=== PATIENT | female | born 1935 | race Caucasian/White ===

== ENCOUNTER → 2019-02-07 08:59 | Outpatient (CLI) | payer MEDICARE, SELFPAY ==
--- NOTE | 2019-02-07 | DI.ECHO.S_ITS ---
[place] [facility]---------+ [facility] +---------+ : : [address] : [address] : : : : [id number] : : : : Phone: [phone]+ Echocardiogram Report + + :Name: REGINA BARRIOS Study Date: 02/07/2019 Height: 59 in : :[facility] Exam Location: IS Weight: 121 lb : : Gender: Female BSA: 1.5 m2 : :: 1935 Age: 83 yrs BP: 137/45 mmHg: :Reason For Study: HEART DISEASE : : Performed By: Maico Ventura : :Referring: NIYAH RODRIGUES : + + Interpretation Summary Left ventricular systolic function is normal without focal wall motion abnormalities with the ejection fraction visually estimated to be 60-65%. There is borderline concentric left ventricular hypertrophy that is unchanged compared to the previous study. There has been no significant change since the previous study. The right ventricle is normal size and systolic function is at the lower limits of normal but is unchanged compared to the previous study. The right ventricular systolic pressure is estimated to be at least 35 mmHg based on an estimated right atrial pressure of 3 mm Hg, and may be slightly higher compared to the previous study. The left atrium is moderately dilated and the right atrium is severely dilated but both atria have mildly decreased in size since the prior echo exam. There is moderate to severe mitral annular calcification but no significant mitral valve stenosis. There is moderate to severe tricuspid regurgitation that is unchanged compared to the previous study. 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 There is significant crowding of the LVOT but this is unchanged compared to the previous exam. The gradients through the prosthetic aortic valve are within the normal range for this type of valve but are slightly higher compared to the previous study. There is mild to moderate aortic regurgitation that is slightly more prominent compared to the previous study. Mild atherosclerotic plaque is noted in the descending aorta. Procedure: A two-dimensional transthoracic echocardiogram with color flow and Doppler was performed. The study quality was technically adequate. Comparison is made with the echocardiogram of 09/15/16. The patient was in normal sinus rhythm during the exam. Left Ventricle: The left ventricle is normal in size. There is borderline concentric left ventricular hypertrophy. Left ventricular systolic function is normal without focal wall motion abnormalities. The ejection fraction is estimated to be 60-65%. This is unchanged compared to the previous study. Diastolic function could not be accurately assessed due to confounding valvular disease. There has been no significant change since the previous study. Right Ventricle: The right ventricle is normal size. Right ventricular systolic function is at the lower limits of normal. This is unchanged compared to the previous study. Atria: The left atrium is moderately dilated. Both atria have mildly decreased in size since the prior echo exam. The right atrium is severely dilated. The interatrial septum is intact with no evidence for an atrial septal defect. Mitral Valve: There is moderate to severe mitral annular calcification. There is moderate calcification extending into the subvalvular apparatus. The mitral valve chordae are thickened and/or calcified. The mitral valve are by pressure half time is 2.7 cm2. No significant mitral valve stenosis. There is trace mitral regurgitation. This is unchanged compared to the previous study. 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 The prosthetic aortic valve is well-seated. There is significant crowding of the LVOT but this is unchanged compared to the previous exam. The gradients through the prosthetic aortic valve are within the normal range for this type of valve. There is probable normal prosthetic aortic valve function. This is slightly higher compared to the previous study. There is mild to moderate aortic regurgitation. This is slightly more prominent compared to the previous study. Tricuspid Valve: The tricuspid valve is normal in structure and function. There is moderate to severe tricuspid regurgitation. This is unchanged compared to the previous study. The right ventricular systolic pressure is estimated to be at least 35 mmHg based on an estimated right atrial pressure of 3 mm Hg. This is slightly higher compared to the previous study. Pulmonic Valve: The pulmonic valve is not well visualized. There is no pulmonic valvular regurgitation. Great Vessels: The aortic root is normal size. The dimensions of the ascending aorta are normal. Mild atherosclerotic plaque(s) in the descending aorta. The pulmonary artery is normal size. The IVC is of normal diameter and collapses greater than 50% with a sniff. This suggests a low right atrial pressure of 3 mm Hg. Pericardium/ Pleura There is no pericardial effusion. There is no pleural effusion. MMode/2D Measurements & Calculations LVIDd: 4.0 cm LVOT diam: 1.6 cm LVIDs: 2.2 cm Ao root diam: 2.8 cm FS: 44.8 % asc Aorta Diam: 2.4 cm EPSS: 1.3 cm IVSd: 0.87 cm LVPWd: 0.80 cm LV bui. diameter/BSA (cm/m^2): 2.7 LV sys. diameter/BSA (cm/m^2): 1.5 LA dimension: 3.0 cm RA long axis: 5.3 cm LA A2 area: 24.6 cm2 RA area: 21.3 cm2 LA A4 area: 15.9 cm2 RA vol: 72.4 ml LA length (vol): 5.2 cm RA : 48.6 ml/m2 LA vol: 63.6 ml IVC diam: 2.1 cm LA vol index: 42.7 ml/m2 Doppler Measurements & Calculations Ao V2 max: 203.2 cm/sec LVOT Max Jack: 105.3 cm/sec Ao V2 mean: 148.4 cm/sec LV V1 max P.4 mmHg Ao max P.5 mmHg LV V1 VTI: 27.1 cm Ao mean P.6 mmHg ELIAZAR(I,D): 1.1 cm2 Ao V2 VTI: 47.2 cm ELIAZAR(V,D): 0.98 cm2 sev ratio: 0.57 ELIAZAR indexed to BSA (cm^2/m^2): 0.73 AI P1/2t: 465.2 msec AI dec slope: 191.0 cm/sec2 MV E max jack: 124.3 cm/sec TR max jack: 282.6 cm/sec MV A max jack: 91.7 cm/sec TR max P.0 mmHg MV E/A: 1.4 PA V2 max: 70.8 cm/sec Med Peak E' Jack: 2.3 cm/sec PA V2 mean: 52.1 cm/sec E/E' med: 54.7 PA mean P.2 mmHg Lat Peak E' Jack: 7.4 cm/sec PA pr(Accel): 36.6 mmHg E/E' lat: 16.7 PA Accel Time: 0.11 sec E/e' average: 35.7 MV dec time: 0.28 sec MV P1/2t: 82.7 msec MVA(VTI): 1.4 cm2 MV V2 mean: 57.9 cm/sec MV P1/2t max jack: 125.0 cm/sec MV mean P.8 mmHg MVA(P1/2t): 2.7 cm2 MV V2 VTI: 36.9 cm SV(LVOT): 51.4 ml Reading Physician:JELANI
== END ==
PROVIDERS: Family Provider Internal Medicine; PCP Internal Medicine; Visit Provider Specialist
DX: I08.2 Rheumatic disorders of both aortic and tricuspid valves (principal); I70.0 Atherosclerosis of aorta; Z95.2 Presence of prosthetic heart valve
CPT/HCPCS: 93306

== ENCOUNTER → 2019-10-11 15:59 | Outpatient (CLI) | payer MEDICARE, SELFPAY ==
--- NOTE | 2019-10-11 | DI.ECHO.S_ITS ---
[place] +---------+ Hospital +---------+ : : [address] : [address] : : : : [id number] : : : : Phone: [phone]+ Echocardiogram Report + + :Name: REGINA BARRIOS Study Date: 10/11/2019 Height: 59 in : :[facility] Weight: 105 lb : : Gender: Female BSA: 1.4 m2 : :: 1935 Age: 83 yrs BP: 132/50 mmHg: :Reason For Study: Tricuspid Valve - Regurgitation : :Ordering Physician: Colton : :Tip Performed By: Mel Page : + + Interpretation Summary Left ventricular systolic function is normal with the ejection fraction visually estimated to be 60-65% with septal motion consistent with post- operative state but no other obvious focal wall motion abnormalities and appears unchanged compared to the previous study. The left ventricle is normal in size and wall thickness with an estimated left ventricular end diastolic volume of 61 ml. There has been no significant change since the previous study. The right ventricle is mild to moderately dilated and systolic function is mildly reduced and appears slightly larger and slightly less dynamic compared to the previous study. Pulmonary artery pressures cannot be estimated but the IVC suggests a CVP of around 15 mmHg, and is likely significantly higher compared to the previous study. Both atria are severely dilated and both atria have significantly increased in size since the prior echo exam. There is a mechanical aortic valve that appears to be well-seated with gradients that are within the normal range for this type of valve. There is mild to moderate aortic regurgitation that appears to be intravalvular and is unchanged from the previous study. The tricuspid valve leaflets appear to be mildly thickened and a dilated annulus preventing complete coaptation producing severe tricuspid regurgitation that is progressive compared to the previous study now with hepatic vein systolic flow reversal. Procedure: A two-dimensional transthoracic echocardiogram with color flow and Doppler was performed. The study quality was technically adequate. Comparison is made with the echocardiogram of 02/07/2019. The heart rate ranged between 56-63 bpm during the study. Left Ventricle: The left ventricle is normal in size and wall thickness. The estimated left ventricular end diastolic volume is 61 ml. Left ventricular systolic function is normal. The ejection fraction is estimated to be 60-65%. Septal motion is consistent with post-operative state. There are no other obvious focal wall motion abnormalities. This is unchanged compared to the previous study. Diastolic function could not be accurately assessed due to confounding valvular disease. There has been no significant change since the previous study. Right Ventricle: The right ventricle is mild to moderately dilated. Right ventricular systolic function is mildly reduced. This is slightly larger and slightly less dynamic compared to the previous study. Atria: Both atria are severely dilated. Both atria have significantly increased in size since the prior echo exam. There is no Doppler evidence for an interatrial shunt. Mitral Valve: There is severe mitral annular calcification. The mitral valve leaflets are mildly calcified. There is mild calcification extending into the subvalvular apparatus. The mitral valve mean gradient is 1.9 mmHg. There is trace mitral regurgitation. This is unchanged compared to the previous study. 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 The prosthetic aortic valve is well-seated. The gradients through the prosthetic aortic valve are within the normal range for this type of valve. There is mild to moderate aortic regurgitation. That appears to be intravalvular and is unchanged from the previous study. Tricuspid Valve: The tricuspid valve leaflets appear to be mildly thickened with mild coaptation and a dilated annulus preventing complete coaptation. There is severe tricuspid regurgitation. This is progressive with hepatic vein flow reversal compared to the previous study. Pulmonary artery pressures cannot be estimated because of the lack of a measurable TR jet velocity but the IVC suggests a CVP of around 15 mmHg. RVSP is underestimated do to the severity of TR. Pulmonic Valve: The pulmonic valve is not well seen, but is grossly normal. There is trace pulmonic regurgitation. Great Vessels: The aortic root is not well visualized but is probably normal size. The ascending aorta is normal in size. The pulmonary artery is not well visualized, but is probably normal size. The IVC is dilated (diameter is greater than 2.1 cm) and it collapses less than 50% with a sniff. This suggests a high right atrial pressure of 15 mm Hg. And is likely significantly higher compared to the previous study. Pericardium/ Pleura There is no pericardial effusion. There is no pleural effusion. MMode/2D Measurements & Calculations LVIDd: 3.7 cm LVOT diam: 1.6 cm LVIDs: 2.6 cm Ao root diam: 2.7 cm FS: 29.7 % asc Aorta Diam: 2.9 cm IVSd: 0.82 cm LVPWd: 0.81 cm LV bui. diameter/BSA (cm/m^2): 2.6 LV sys. diameter/BSA (cm/m^2): 1.8 LA A2 area: 27.6 cm2 RA long axis: 5.7 cm LA A4 area: 22.8 cm2 RA area: 28.1 cm2 LA length (vol): 6.2 cm RA vol: 117.7 ml LA vol: 85.7 ml RA : 83.9 ml/m2 LA vol index: 61.1 ml/m2 IVC diam: 2.6 cm RVD1 (basal): 5.0 cm RVD2 (mid): 4.0 cm Doppler Measurements & Calculations Ao V2 max: 191.1 cm/sec LVOT Max Jack: 84.5 cm/sec Ao V2 mean: 125.2 cm/sec LV V1 max P.9 mmHg Ao max P.6 mmHg LV V1 VTI: 18.9 cm Ao mean P.2 mmHg ELIAZAR(I,D): 1.1 cm2 Ao V2 VTI: 38.2 cm ELIAZAR(V,D): 0.94 cm2 sev ratio: 0.50 ELIAZAR indexed to BSA (cm^2/m^2): 0.75 AI P1/2t: 335.5 msec AI dec slope: 351.0 cm/sec2 MV E max jack: 129.0 cm/sec TR max jack: 214.2 cm/sec MV A max jack: 99.6 cm/sec TR max P.4 mmHg MV E/A: 1.3 PA V2 max: 71.6 cm/sec Med Peak E' Jack: 3.5 cm/sec PA V2 mean: 49.2 cm/sec E/E' med: 36.8 PA mean P.1 mmHg Lat Peak E' Jack: 8.3 cm/sec PA Accel Time: 0.11 sec E/E' lat: 15.6 E/e' average: 26.2 MV P1/2t: 65.0 msec MVA(VTI): 1.2 cm2 MV V2 mean: 56.9 cm/sec MV P1/2t max jack: 129.7 cm/sec MV mean P.9 mmHg MVA(P1/2t): 3.4 cm2 MV V2 VTI: 34.1 cm SV(LVOT): 40.2 ml Reading Physician:JELANI
== END ==
PROVIDERS: Family Provider Internal Medicine; PCP Internal Medicine; Visit Provider Specialist
DX: I08.2 Rheumatic disorders of both aortic and tricuspid valves (principal); Z95.2 Presence of prosthetic heart valve
CPT/HCPCS: 93306

== ENCOUNTER → 2021-02-16 14:45 | Outpatient (CLI) | payer MEDICARE, SELFPAY ==
--- NOTE | 2021-02-16 | DI.ECHO.S_ITS ---
[facility] +---------+ Hospital +---------+ : : [address] : [address] [place] : : : : [id number] : : : : Phone: [phone] +[phone]+ Echocardiogram Report + + :Name: REGINA BARRIOS Study Date: 02/16/2021 Height: 58 in : :[facility] ReadingLocation: Weight: 92 lb : : Gender: Female BSA: 1.3 m2 : :: 1935 Age: 85 yrs BP: 134/72 mmHg: :Reason For Study: HEART DISEASE : :Ordering Physician: LILIA, : :NIYAH Performed By: Sarahy Emanuel : :Referring: NIYAH RODRIGUES : + + Interpretation Summary Left ventricular systolic function remains normal with an estimated ejection fraction of 65 to 70% without any obvious focal wall motion abnormality although a significant dyssynchronous contraction pattern likely due to previous surgery and a paced rhythm but grossly appears unchanged from the previous exam. Diastolic function cannot be accurately assessed. The right ventricle is mildly enlarged with moderately reduced systolic function and appears slightly smaller and slightly less dynamic compared to the previous study. Pacemaker leads are now seen which are new compared to the previous exam. Right ventricular systolic pressure is estimated at 40 mmHg with a CVP of 15 mmHg based on a dilated IVC although measuring smaller compared to the previous exam. There is probable significant biatrial enlargement although right atrial size has significantly decreased since the previous exam. There continues to be significant mitral valve calcification but without significant mitral stenosis or regurgitation and appears unchanged compared to the previous study. The is a normally functioning mechanical prosthetic aortic valve with trivial aortic regurgitation that is less prominent compared to the previous study. There is now a probable tricuspid valve clip with moderate tricuspid regurgitation that appears significantly less prominent compared to the previous exam. A small left pleural effusion is noted which was not identified on the previous study. Procedure: A two-dimensional transthoracic echocardiogram with color flow and Doppler was performed. Comparison is made with the echocardiogram of 10/11/2019. Left Ventricle: The left ventricle is normal in size and wall thickness. The estimated left ventricular end diastolic volume is 33 ml. Left ventricular systolic function appears normal without focal wall motion abnormalities. The ejection fraction is estimated to be 65-70%. There is a mild dyssynchronous contraction pattern due to the paced rhythm. There are no focal wall motion abnormalities. Diastolic function could not be accurately assessed due to paced rhythm. There has been no significant change since the previous study. Right Ventricle: The right ventricle is mildly dilated. There is a pacemaker lead in the right ventricle. Right ventricular systolic function is moderately reduced. This is slightly smaller and slightly less dynamic compared to the previous study. Atria: The left atrium is not well visualized. The left atrium visually appears severly enlarged, possibly slightly smaller compared to the previous study. The right atrium is severely dilated. The right atrium has significantly decreased in size since the prior echo exam. There is a catheter/pacemaker lead seen in the right atrium. The interatrial septum is not well visualized. Mitral Valve: There is severe mitral annular calcification. The mitral valve leaflets are mildly calcified. There is mild calcification extending into the subvalvular apparatus. No significant mitral valve stenosis. The mitral valve mean gradient is 1.65 mmHg. There is trace mitral regurgitation. This is unchanged compared to the previous study. 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 The prosthetic aortic valve is well-seated. The gradients through the prosthetic aortic valve are within the normal range for this type of valve. There is trace aortic regurgitation. This is less prominent compared to the previous study. Tricuspid Valve: Tricuspid leaflets are thickened. There is a probable tricuspid valve clip which is new from the previous study. There is moderate tricuspid regurgitation. This is less prominent compared to the previous study. The right ventricular systolic pressure is estimated to be at least 40 mmHg based on an estimated right atrial pressure of 15 mm Hg. Comparison with the previous study is not possible because this was unable to be assessed on the previous study. Pulmonic Valve: The pulmonic valve is not well visualized. There is trace pulmonic regurgitation. Great Vessels: The aortic root is not well visualized. The dimensions of the ascending aorta are normal. The IVC is dilated (diameter is greater than 2.1 cm) and it collapses less than 50% with a sniff. This suggests a high right atrial pressure of 15 mm Hg. Pericardium/ Pleura There is no pericardial effusion. There is a small left- sided pleural effusion. This is more prominent compared to the previous study. MMode/2D Measurements & Calculations LVIDd: 3.8 cm LVOT diam: 1.9 cm LVIDs: 2.4 cm asc Aorta Diam: 2.8 cm FS: 35.3 % IVSd: 0.81 cm LVPWd: 0.83 cm LV bui. diameter/BSA (cm/m^2): 2.9 LV sys. diameter/BSA (cm/m^2): 1.9 LA A4 area: 20.7 cm2 RA long axis: 5.5 cm LA length (vol): 5.7 cm RA area: 20.7 cm2 RA vol: 66.8 ml RA : 51.0 ml/m2 IVC diam: 2.2 cm RVD1 (basal): 4.1 cm TAPSE: 0.91 cm Doppler Measurements & Calculations Ao V2 max: 149.7 cm/sec LVOT Max Jack: 51.4 cm/sec Ao V2 mean: 105.0 cm/sec LV V1 max P.1 mmHg Ao max P.0 mmHg LV V1 VTI: 11.7 cm Ao mean P.2 mmHg ELIAZAR(I,D): 0.94 cm2 Ao V2 VTI: 34.4 cm ELIAZAR(V,D): 0.95 cm2 sev ratio: 0.34 ELIAZAR indexed to BSA (cm^2/m^2): 0.72 MV E max jack: 110.8 cm/sec TR max jack: 249.0 cm/sec MV A max jack: 76.8 cm/sec TR max P.8 mmHg MV E/A: 1.4 PA pr(Accel): 34.5 mmHg Med Peak E' Jack: 3.6 cm/sec E/E' med: 31.1 Lat Peak E' Jack: 6.1 cm/sec E/E' lat: 18.3 E/e' average: 24.7 MV dec time: 0.24 sec MVA(VTI): 1.0 cm2 MV V2 mean: 56.7 cm/sec SV(LVOT): 32.3 ml MV mean P.6 mmHg MV V2 VTI: 31.1 cm TV mean P.4 mmHg Reading Physician:11:57 AM
== END ==
PROVIDERS: Family Provider Internal Medicine; PCP Internal Medicine; Referring Provider Specialist; Visit Provider Specialist
DX: I07.1 Rheumatic tricuspid insufficiency (principal); J90 Pleural effusion, not elsewhere classified; Z95.2 Presence of prosthetic heart valve; Z95.0 Presence of cardiac pacemaker
CPT/HCPCS: 93306

== ENCOUNTER 2021-04-01 15:14 | Emergency (ER) | payer MEDICARE, SELFPAY ==
[2021-04-01 15:23] VITALS: BP 128/67; PULSE 70; RESP 18; TEMP 36.4; O2SAT 99
--- NOTE | 2021-04-01 19:54 | CM.SWNOTE ---
WAGON WINDER Note WAGON WINDER receives consult and meets with patient and patient's son in law in waiting area. Patient is 85 y/o female presents to this ED with concerns for pneumonia and SOB. [place] [facility] until a few hours prior to visiting this ED. With patient's consent, WAGON WINDER meets with patient and patient's son in law. Patient is A/Ox4 and presents as concerned that she is in her nightgown, patient states that son in law is concerned about patient's health and that is why she is at this ED. It is reported by patient and FLETCHER that patient has been to 5 hospitals since October 2020 due to pain, broken vertebra, broke ribs and lump in back. Patient endorses going to [facility], [facility] multiple times and [facility]. Patient's son in law reports concern that patient has lost 30 lbs in a short amount of time and presents as upset that [facility] d/c'd patient and concerns that patient needs to be in hospital and receive medical attention. WAGON WINDER discusses caregivers, NURSING HOME and SNF and HH. Son in law reports he is burned out of being a caregiver and drives patient and cooks and cleans and prepares meals. Patient endorses she is independent with ADLs at home and uses a walker. Patient states she stayed at [facility] for a few weeks and received HH services before. Patient's son in law endorses that he just hired a caregiver and she will start serving patient soon as frequently as she can. Patient endorses that she does not want to live in [place] or SNF at this time. WAGON WINDER encourages patient to utilize caregiver and see how it works out for family as it is something that they have not yet tried. WAGON WINDER provides patient with senior resource guide. In private WAGON WINDER asks patient if she feels safe at home and she responds Yes, he just has a big mouth. Plan: Patient to d/c when medically clear to home with caregiver and family support in home. Per ED tracker patient LWOBS. STEFF Verma
== END 2021-04-01 19:00 | disposition left against medical advice (07) ==
PROVIDERS: Emergency Provider Emergency Medicine; Family Provider Internal Medicine; PCP Internal Medicine
CPT/HCPCS: 99281

== ENCOUNTER → 2022-04-01 13:08 | Outpatient (CLI) | payer MEDICARE, SELFPAY ==
--- NOTE | 2022-04-01 | DI.RAD.S_ITS ---
PROCEDURE: FL BARIUM SWALLOW W SPEECH INDICATIONS: DYSPHAGIA COMPARISON: TECHNIQUE: Examination was conducted in conjunction with speech pathology per standard protocol. In the lateral projection, filming was performed of the patient swallowing. AP projection filming may also be performed with patient swallowing. COMPARISON: Outside Film, CT, CT LUMBAR SPINE WITHOUT CONTRAST, 02/24/2022, 13:31. FINDINGS: Function: There is laryngotracheal aspiration with thin barium consistency. There is vallecular pooling with ever consistency. Morphology: No cricopharyngeal bar is identified. No cervical esophageal webs. No Zenker's diverticulum. No strictures. AP view of chest demonstrates the esophagus is distended. There is narrowing at the GE junction. Heart size is moderately enlarged. Sternotomy and a cardiac valve prosthesis. IMPRESSION: 1. There is laryngeal aspiration with thin barium consistency. Please see speech pathologist's report for detail. 2. Follicular falling. 3. 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 Recommend EGD for follow-up evaluation. Dictated by: Nelida Allen M.D. on 04/01/2022 at 16:02 Approved by: Nelida Allen M.D. on 04/01/2022 at 16:05
--- NOTE | 2022-04-01 15:21 | ST.SWALLOW ---
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 She stated she is unable to eat solids and experiences high volumes of phlegm that she is constantly spitting up when she drinks liquid. She is currently on a liquid diet to meet her nutrition and hydration needs. Subjective Observations Rena arrived carrying an emesis bag and several tissues as she has been experiencing higher volumes of phlegm today and was concerned about vomiting. Procedure and process explained and Rena expressed understanding and agreed to participate. Patient Positioning Position View Lat-A/P Imaging Lateral View Textures Administered Trials Presented Thin Liquid via Cup,Furley Liquid via Cup,Honey Liquid via Spoon,Regular Textures Oral Phase Source: MBSIMP (TM) (C) Bolus Specific Scoring Grid Lip Closure Severe Impairment Tongue Control During Bolus Hold No Impairment (WNL) Bolus Prep/Mastication No Impairment (WNL) Bolus Transport/Lingual Motion Severe Impairment A/P Lingual Propulsion Delay Yes Oral Residue Mild Impairment Residue Clearing Mild Impairment Nasal Regurgitation No Additional Oral Phase Observations Anterior loss of bolus present on initial swallow, with no anterior loss on successive swallows. Pt exhibited significant effort when attempting a/p propulsion of bolus, with disorganized and repetitive tongue movements and a delay in swallowing following verbal prompt. Mild oral residue present following all swallows, which pt had difficulty clearing due to difficulty with a/p propulsion and initiating swallows. Pharyngeal Phase Source: MBSIMP (TM) (C) Bolus Specific Scoring Grid Delayed Initiation of Pharyngeal Swallow Yes: head of bolus at posterior surface of epiglottis Soft Palate Elevation No Impairment (WNL) Tongue Base Strength/Range of Motion No Impairment (WNL) Residue Along the Tongue Base Yes Clearance of Residue Along Tongue Base Moderate Impairment Laryngeal Elevation No Impairment (WNL) Anterior Hyoid Movement Mild Impairment Epiglottic Range of Motion No Impairment (WNL) Vallecular Residue Yes Clearance of Vallecular Residue Moderate Impairment Laryngeal Vestibular Closure No Impairment (WNL) Pharyngeal Stripping Wave No Impairment (WNL) Posterior Pharyngeal Wall Residue Yes Clearance of Posterior Pharyngeal Wall Moderate Impairment Residue Upper Esophageal Sphincter Opening Mild Impairment Residue in the Pyriform Sinuses Yes Clearance of Residue in the Pyriform Moderate Impairment Sinuses Pharyngoesophageal Backflow Observed No Additional Pharyngeal Phase Observations Delayed initiation of pharyngeal swallow, with head of the bolus at the posterior surface of the epiglottis. Once swallow was initiated, structures moved efficiently and WNL. Mildly impaired hyolaryngeal elevation and excursion, but laryngeal vestibular closure and epiglottic movement were WNL. Mild-moderate residue present following swallow, which pt had moderate difficulty clearing due to challenges with initiating swallow. Pt was able to clear some residue with sequential swallows, however, aspiration and penetration occurred with residue from thin liquid trials. 1 instance of aspiration (PAS 7) and 1 instance of penetration (PAS 5 ) noted with residue from thin liquid. No instances of aspiration or penetration with thicker liquids or solid. Thicker liquids and solid moved significantly slower and appeared to increase effort required to initiate swallow and clear residue. Assessment was paused x3 to allow pt time to clear phlegm from her mouth. A/P View A/P View Observations Esophageal Clearance Upright Position Severe Impairment Additional Observations No trials completed in A/P view as imaging indicated severe esophageal retention. No retrograde flow observed, however, retrograde flow may be present if additional trials were completed or if pt was actively drinking. Possible stricture or narrowing of esophagus. Recommend GI referral and discussed remaining upright for an hour or more following assessment to help bolus pass through esophagus to stomach. Pt expressed understanding and agreement. Clinical Impressions Dysphagia Type oropharyngeal dysphagia Findings The pt presents with moderately-severe oropharyngeal dysphagia characterized by disorganized and repetitive tongue movement during a/p propulsion of bolus, difficulty initiating swallow to clear residue, and pharyngeal residue that increase pt risk for aspiration. Pt exhibited 1 instance of aspiration (PAS 7) and 1 instance of penetration (PAS 5) on thin liquids and presented with a weak cough to clear. No penetration or aspiration observed with thickened liquids. Additionally, pt presents with severely impaired esophageal clearance and would benefit from a referral to GI. Recommend nectar thick liquids to reduce risk of aspiration, referral for outpatient speech therapy targeting safe swallow strategies and oral motor exercises, and referral for GI due to severely impaired esophageal clearance. Rehabilitation Potential Fair Patient Appropriate for Therapy Yes Recommendations Diet Liquids Order Furley Diet Order Regular Medication Recommendation As Tolerated Aspiration Precautions Recommended Precautions Upright at 90 Degrees,Frequent Rest Periods,Small Bites/Sips Treatment Plan Therapy Recommendations Outpatient Speech Therapy Recommended Referrals GI Consult Compensatory Strategies Recommendations Sitting Upright (90 deg),Small Bites and Sips Short Term Goals 1. The pt will perform safe swallow strategies with oral intake independently to reduce risk of aspiration. 2. The pt will perform exercises to increase strength , coordination, and ROM of swallow musculature to reduce risk of aspiration and increase comfort with oral intake. Fagot Heater Helper Goals The pt will safely tolerate least restrictive diet to meet her nutrition and hydration needs. Additional Recommendations/Comments Furley thick liquids are recommended to reduce risk of aspiration. Examples of thickeners include Thick-It and Simply Thick. There are also several kitchen vivian that can be used to thicken liquids.
== END ==
PROVIDERS: Family Provider Internal Medicine; PCP Internal Medicine; Referring Provider Otolaryngology; Visit Provider Otolaryngology
DX: K22.2 Esophageal obstruction (principal); R13.19 Other dysphagia
CPT/HCPCS: 74230; 92611

== ENCOUNTER 2022-05-20 21:32 | Inpatient (IN) | payer MEDICARE, SELFPAY ==
[2022-05-20 21:37] VITALS: BP 160/72; PULSE 69; RESP 18; TEMP 36.6; O2SAT 98; BMI 17.7
--- NOTE | 2022-05-20 21:37 | DI.RAD.S_ITS ---
PROCEDURE: XR HIP W PEL IF DONE RT 2V INDICATIONS: fall with R hip injury TECHNIQUE: AP pelvis with lateral view(s) of the right hip(s). COMPARISON: None. FINDINGS: Bones: Decreased mineralization. There is an intertrochanteric right hip fracture resulting in varus deformity of the right hip. There is no visible dislocation. No significant anterior posterior displacement. The left hip is intact. Pelvic ring appears intact. No suspicious bony lesions. Soft tissues: The visualized bowel gas pattern is normal. No suspicious soft tissue calcifications. IMPRESSION: 1. Intertrochanteric right hip fracture without dislocation. Dictated by: Sharron Martinez M.D. on 05/20/2022 at 22:51 Approved by: Sharron Martinez M.D. on 05/20/2022 at 22:52
--- NOTE | 2022-05-20 21:38 | DI.CT.S_ITS ---
PROCEDURE: CT HEAD/BRAIN WO CON INDICATIONS: fall with head injury on thinners TECHNIQUE: Noncontrast 4.5 mm thick angled axial sections acquired from the foramen magnum to the vertex, with coronal and sagittal reformats. For radiation dose reduction, the following was used: automated exposure control, adjustment of mA and/or kV according to patient size. COMPARISON: None. FINDINGS: Image quality: Excellent. CSF spaces: Basal cisterns are patent. No extra-axial fluid collections. The ventricles are symmetric in size and shape. Brain: No intracranial bleeds or masses. There is cerebral volume loss for age, with resultant ventricular and sulcal prominence. Benign basal ganglia calcifications present. Focal right basal ganglia lacunar infarct. There are periventricular and deep white matter chronic small vessel ischemic changes. There is heavy intracranial internal carotid artery atherosclerosis. Skull and face: Calvarium and visualized facial bones appear intact, without suspicious lesions. Sinuses: Visualized sinuses and mastoids are clear. IMPRESSION: 1. No CT evidence of acute intracranial process. 2. Age-appropriate cerebral cortical volume loss and chronic microvascular ischemic changes. 3. Remote right basal ganglia infarct. 4. No visible subcutaneous hematoma or underlying fracture. Dictated by: Sharron Martinez M.D. on 05/20/2022 at 22:53 Approved by: Sharron Martinez M.D. on 05/20/2022 at 22:55
[2022-05-20 21:40] VITALS: PULSE 66; O2SAT 98
[2022-05-20 21:46] VITALS: BP 149/65; PULSE 64; O2SAT 97
[2022-05-20 22:00] VITALS: PULSE 61; O2SAT 94
[2022-05-20 22:04] LABS: Add Manual Diff / Slide Review NO; Basophils Absolute Auto 0 /uL (0-100); Basophils Percent Auto 0.3 % (0-2); Eosinophils Absolute Auto 100 /uL (0-450); Eosinophils Percent Auto 1.6 % (2-4); Hematocrit 35.3 % (36-46); Hemoglobin 11.9 g/dL (12.0-16.0); Lymphocytes Absolute Auto 1300 /uL (1100-4500); Lymphocytes Percent Auto 33.5 % (25-40); Mean Corpuscular HGB Conc 33.5 % (30-36); Mean Corpuscular Hemoglobin 32.2 PG (26-34); Mean Corpuscular Volume 95.9 fL (80-100); Monocytes Absolute Auto 300 /uL (0-900); Monocytes Percent Auto 8.2 % (3-14); Neutrophils Absolute Auto 2100 /uL (1500-7000); Neutrophils Percent Auto 56.4 % (50-75); Platelet Count 108 X10^3/uL (150-400); Red Blood Cell Count 3.69 X10^6/uL (4.0-5.2); Red Cell Distribution Width 13.6 % (11.6-14.8); White Blood Cell Count 3.7 X10^3/uL (4.5-11.0)
[2022-05-20 22:08] LABS: Alanine Aminotransferase 33 IU/L (<35); Albumin 3.5 g/dL (3.5-5.0); Alkaline Phosphatase 220 U/L (38-126); Aspartate Aminotransferase 57 IU/L (14-36); BUN Creatinine Ratio 51.5 (6-22); Bilirubin Total 0.7 mg/dL (0.2-1.3); Blood Urea Nitrogen 52 mg/dL (7-17); Calcium 8.7 mg/dL (8.4-10.2); Carbon Dioxide 32 mmol/L (22-32); Chloride 107 mmol/L (98-107); Estimated Glomerular Filt Rate 55 mL/min (>60); Globulin 3.6 g/dL (1.7-4.1); Glucose 136 mg/dL (80-110); HEMOLYSIS < 15 (0-50); Potassium 3.6 mmol/L (3.4-5.1); Sodium 143 mmol/L (137-145); Total Protein 7.1 g/dL (6.3-8.2)
[2022-05-20 22:16] LABS: COVID19 -Nasal RAPID POSITIVE (Negative)
[2022-05-20 22:19] VITALS: BP 161/72; PULSE 66; RESP 23; O2SAT 97
--- NOTE | 2022-05-20 22:21 | ED.LOWEXIN ---
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 She had been standing at her home when a family member was attempting to place a pain patch on her back when she lost her balance and fell onto her right side injuring her right hip and also hitting her head. She denies any loss of consciousness, nausea or vomiting and has full recall of the event. She denies any neck or back pain. She has significant pain in her right hip which is worse with palpation and attempts at ambulation. She denies any numbness, tingling or weakness. She denies runny nose, sore throat or cough. She is had no chest pain or shortness of breath. She is activated as a modified trauma given fall with head injury while on anticoagulants Related Data Allergies Allergy/AdvReac Type Severity Reaction Status Date / Time codeine Allergy Intermediate Vomiting Verified 04/01/21 15:27 Review of Systems Review of Systems Narrative: GENERAL: Denies chills, fatigue, malaise, fever, sweats. HEENT: Denies sinus pain, ear pain, sore throat, difficulty swallowing, dizziness. RESPIRATORY: Denies dyspnea, cough, wheezing, hemoptysis, sputum. CARDIOVASCULAR: Denies chest pain, palpitations, orthopnea, edema, GASTROINTESTINAL: Denies nausea, vomiting, abdominal pain, diarrhea, constipation, melena. : Denies dysuria, frequency, incontinence, hematuria, urinary retention. MUSCULOSKELETAL: See HPI SKIN: Denies rash, skin lesions, or other NEUROLOGIC: Denies weakness, headache, numbness, change in speech, confusion, seizures, incoordination. PSYCHIATRIC: No concerning psychosocial issues. 12 point review of systems is negative except for those stated above Patient History Social History household members: other Smoking Status: Never smoker alcohol intake: current Smoking Status: Never smoker alcohol intake frequency: 0-2 drinks per day Substance Use Type: does not use Exam Narrative Exam Narrative: GENERAL: [86] year old patient appears stated age. Well-developed patient, in mild distress. GCS 15 HEAD: Atraumatic. Normocephalic. EYES: Pupils equal round and reactive. Extraocular motions intact. No scleral icterus. No injection or drainage. ENT: Nose without bleeding, purulent drainage. Throat without erythema, tonsillar hypertrophy or exudate. Airway patent. NECK: Trachea midline. Non tender CARDIOVASCULAR: Regular rate and rhythm without murmurs, gallops, or rubs. RESPIRATORY: Clear to auscultation. Breath sounds equal bilaterally. No wheezes, rales, or rhonchi. GASTROINTESTINAL: Abdomen soft, non-tender, nondistended. EXTREMITIES: Pain on palpation of right hip, shortening and external rotation noted, this is closed, isolated and neurovascularly intact BACK: Nontender without deformity or crepitance. No flank tenderness. NEURO: AOx3. SKIN: No rash or erythema of visible areas Initial Vital Signs Initial Vital Signs: Vital Signs Temperature 98 F 05/20/22 21:37 Pulse Rate 69 05/20/22 21:37 Respiratory Rate 18 05/20/22 21:37 Blood Pressure 160/72 H 05/20/22 21:37 Pulse Oximetry 98 05/20/22 21:37 Oxygen Delivery Method 05/20/22 21:37 Course Orders Ordered: ED Orders 05/20/22 21:37 XR hip w pel if done RT 2V Stat 05/20/22 21:38 CT head/brain wo con Stat 05/20/22 21:47 COVID19 -Nasal RAPID/Pre-Proc Stat Complete Blood Count AUTO DIFF Stat Comprehensive Metabolic Panel Stat Prothrombin Time INR Stat 05/20/22 22:39 Consult to Orthopedic Surgery Stat 05/21/22 05:00 Basic Metabolic Panel Routine Complete Blood Count AUTO DIFF Routine Prothrombin Time INR Routine Acetaminophen (Acetaminophen 325 Mg Tablet) 650 mg PO Q6HR PRN PRN Reason: Fever/Mild Pain (1-3) Morphine Sulfate (Morphine 2 Mg/Ml Inj) 2 mg IV Q2HR PRN PRN Reason: Pain, Moderate (4-6) Last Admin: 05/20/22 23:36 Dose: 2 mg Documented By: LUCIA Naloxone HCl (Naloxone 0.4 Mg/Ml Vial) 0.4 mg IV Q30MIN PRN PRN Reason: Opiate Reversal Ondansetron HCl (Ondansetron 4 Mg/2 Ml Inj) 4 mg IV Q8HR PRN PRN Reason: Nausea And Vomiting Discontinued Medications Fentanyl (Fentanyl 100 Mcg/2 Ml Inj) 25 mcg IV Q1H PRN PRN Reason: Pain, Severe (7-10) Last Admin: 05/20/22 22:43 Dose: 25 mcg Documented By: EB Sodium Chloride (Normal Saline 0.9%) 1,000 mls @ 125 mls/hr IV CONT CUBA Last Admin: 05/20/22 22:26 Dose: 125 mls/hr Documented By: EB Phytonadione 5 mg/ Sodium (Chloride) 100.5 mls @ 201 mls/hr IV NOW ONE Stop: 05/20/22 23:07 Last Admin: 05/21/22 00:27 Dose: 201 mls/hr Documented By: JT Consultations Consultation #1: On-call orthopedist, Dr. Henderson, has reviewed case and presentation, request patient be admitted to hospitalist service for medical clearance. Vital Signs Vital signs: Vital Signs - 8 hr 05/20/22 21:37 05/20/22 21:40 05/20/22 21:46 Temperature 98 F Pulse Rate 69 66 64 Respiratory Rate 18 Blood Pressure 160/72 H Pulse Oximetry 98 98 97 Oxygen Delivery Method Room Air 05/20/22 21:46 05/20/22 22:00 05/20/22 22:19 Temperature Pulse Rate 61 66 Respiratory Rate 23 Blood Pressure 149/65 H Pulse Oximetry 94 97 Oxygen Delivery Method 05/20/22 22:19 Temperature Pulse Rate Respiratory Rate Blood Pressure 161/72 H Pulse Oximetry Oxygen Delivery Method MDM - Extremity Injury (Lower) Lab Data Result diagrams: 05/20/22 21:47 05/20/22 21:47 Labs: Lab Results 05/20/22 05/20/22 05/20/22 Range/Units 21:47 21:47 21:47 WBC 3.7 L (4.5-11.0) X10^3/uL RBC 3.69 L (4.0-5.2) X10^6/uL Hgb 11.9 L (12.0-16.0) g/dL Hct 35.3 L (36-46) % MCV 95.9 (80-100) fL MCH 32.2 (26-34) PG MCHC 33.5 (30-36) % RDW 13.6 (11.6-14.8) % Plt Count 108 L (150-400) X10^3/uL Neut % (Auto) 56.4 (50-75) % Lymph % (Auto) 33.5 (25-40) % [place] % (Auto) 8.2 (3-14) % Eos % (Auto) 1.6 L (2-4) % Baso % (Auto) 0.3 (0-2) % Neut # (Auto) 2100 (3321-3264) /uL Lymph # (Auto) 1300 (5025-2412) /uL [place] # (Auto) 300 (0-900) /uL Eos # (Auto) 100 (0-450) /uL Baso # (Auto) 0 (0-100) /uL PT (10.1-12.7) SECONDS INR (0.9-1.3) Sodium 143 (137-145) mmol/L Potassium 3.6 (3.4-5.1) mmol/L Chloride 107 (98-107) mmol/L Carbon Dioxide 32 (22-32) mmol/L BUN 52 H (7-17) mg/dL Creatinine 1.01 (0.52-1.04) mg/dL Estimated GFR 55 L (>60) mL/min BUN/Creatinine Ratio 51.5 H (6-22) Glucose 136 H (80-110) mg/dL Calcium 8.7 (8.4-10.2) mg/dL Total Bilirubin 0.7 (0.2-1.3) mg/dL AST 57 H (14-36) IU/L ALT 33 (<35) IU/L Alkaline Phosphatase 220 H (38-126) U/L NT-Pro-B Natriuret Pep (<450) pg/mL Total Protein 7.1 (6.3-8.2) g/dL Albumin 3.5 (3.5-5.0) g/dL Globulin 3.6 (1.7-4.1) g/dL Albumin/Globulin Ratio 1.0 (1.0-2.8) Urine Color Urine Appearance Urine pH (4.5-8.0) Ur Specific [place] (1.000-1.035) Urine Protein (Negative) Urine Glucose (UA) (Negative) g/dL Urine Ketones (NEGATIVE) Urine Occult Blood (Negative) Urine Nitrate (Negative) Urine Bilirubin (NEGATIVE) Urine Urobilinogen (0.2) E.U./dL Ur Leukocyte Esterase (NEGATIVE) Urine RBC (0-5/HPF) Urine WBC (0-5/HPF) Urine Bacteria (None) Ur Culture Indicated? SARS-CoV-2 (PCR) Positive H (Negative) 05/20/22 05/20/22 05/20/22 Range/Units 21:47 21:47 22:37 WBC (4.5-11.0) X10^3/uL RBC (4.0-5.2) X10^6/uL Hgb (12.0-16.0) g/dL Hct (36-46) % MCV (80-100) fL MCH (26-34) PG MCHC (30-36) % RDW (11.6-14.8) % Plt Count (150-400) X10^3/uL Neut % (Auto) (50-75) % Lymph % (Auto) (25-40) % [place] % (Auto) (3-14) % Eos % (Auto) (2-4) % Baso % (Auto) (0-2) % Neut # (Auto) (3310-4856) /uL Lymph # (Auto) (6263-1455) /uL [place] # (Auto) (0-900) /uL Eos # (Auto) (0-450) /uL Baso # (Auto) (0-100) /uL PT 60.4 H (10.1-12.7) SECONDS INR 5.2 H* (0.9-1.3) Sodium (137-145) mmol/L Potassium (3.4-5.1) mmol/L Chloride (98-107) mmol/L Carbon Dioxide (22-32) mmol/L BUN (7-17) mg/dL Creatinine (0.52-1.04) mg/dL Estimated GFR (>60) mL/min BUN/Creatinine Ratio (6-22) Glucose (80-110) mg/dL Calcium (8.4-10.2) mg/dL Total Bilirubin (0.2-1.3) mg/dL AST (14-36) IU/L ALT (<35) IU/L Alkaline Phosphatase (38-126) U/L NT-Pro-B Natriuret Pep 2800 H (<450) pg/mL Total Protein (6.3-8.2) g/dL Albumin (3.5-5.0) g/dL Globulin (1.7-4.1) g/dL Albumin/Globulin Ratio (1.0-2.8) Urine Color Yellow Urine Appearance Clear Urine pH 7.5 (4.5-8.0) Ur Specific [place] 1.010 (1.000-1.035) Urine Protein Trace H (Negative) Urine Glucose (UA) Negative (Negative) g/dL Urine Ketones Negative (NEGATIVE) Urine Occult Blood 1+ H (Negative) Urine Nitrate Negative (Negative) Urine Bilirubin Negative (NEGATIVE) Urine Urobilinogen 0.2 (0.2) E.U./dL Ur Leukocyte Esterase 2+ H (NEGATIVE) Urine RBC 0-1/hpf (0-5/HPF) Urine WBC 1-5/hpf (0-5/HPF) Urine Bacteria Many (>30) H (None) Ur Culture Indicated? Specimen cultured SARS-CoV-2 (PCR) (Negative) Imaging Data CT scan - head: Radiologist's Impression: [place] [address] CT Scan Report Signed Patient: Rena Nogueira MR#: [id number] : 1935 Acct:[id number] Age/Sex: 86 / F Date of Service: 05/20/22 Loc: ICU 230-1 Accession Number: [id number] ?? Procedure: CT head/brain wo con Ordering Provider: Papi Whaley D.O. PROCEDURE:? CT HEAD/BRAIN WO CON ? INDICATIONS:? fall with head injury on thinners ? TECHNIQUE:? Noncontrast 4.5 mm thick angled axial sections acquired from the foramen magnum to the vertex, with coronal and sagittal reformats.? For radiation dose reduction, the following was used:? automated exposure control, adjustment of mA and/or kV according to patient size.? ? COMPARISON:? None. ? FINDINGS:? Image quality:? Excellent.? ? CSF spaces:? Basal cisterns are patent.? No extra-axial fluid collections.? The ventricles are symmetric in size and shape.? ? Brain:? No intracranial bleeds or masses.? There is cerebral volume loss for age, with resultant ventricular and sulcal prominence.? Benign basal ganglia calcifications present.? Focal right basal ganglia lacunar infarct.? There are periventricular and deep white matter chronic small vessel ischemic changes.? There is heavy intracranial internal carotid artery atherosclerosis.? ? Skull and face:? Calvarium and visualized facial bones appear intact, without suspicious lesions.? ? Sinuses:? Visualized sinuses and mastoids are clear.? ? IMPRESSION:? ? 1. No CT evidence of acute intracranial process.? ? 2. Age-appropriate cerebral cortical volume loss and chronic microvascular ischemic changes.? ? 3. Remote right basal ganglia infarct. ? 4. No visible subcutaneous hematoma or underlying fracture.? ? ? Dictated by: Sharron Martinez M.D. on 05/20/2022 at 22:53 ? ? Approved by: Sharron Martinez M.D. on 05/20/2022 at 22:55 ? Extremity x-ray #1: Radiologist's Impression: Rena Nogueira??86??F??1935 ? Allergy/Adv: codeine Close Head CT (Signed) Sharron Martinez - 05/20/22 Hip X-Ray (Signed) Sharrno Martinez - 05/20/22 Modified Barium Swallow (Signed) Ketty Allen - 04/01/22 Echocardiogram Ultrasound (Signed) Colton Whelan - 02/16/21 Echocardiogram Ultrasound (Signed) Colton Whelan - 10/11/19 Echocardiogram Ultrasound (Signed) Colton Whelan - 02/07/19 [place] [address] XRay Report Signed Patient: Rena Nogueira MR#: [id number] : 1935 Acct:[id number] Age/Sex: 86 / F Date of Service: 05/20/22 Loc: [facility] 230-1 Accession Number: [id number] ?? Procedure: XR hip w pel if done RT 2V Ordering Provider: Papi Whaley D.O. PROCEDURE:? XR HIP W PEL IF DONE RT 2V ? INDICATIONS:? fall with R hip injury ? TECHNIQUE:? AP pelvis with lateral view(s) of the right hip(s).? ? COMPARISON:? None. ? FINDINGS:? ? Bones:? Decreased mineralization.? There is an intertrochanteric right hip fracture resulting in varus deformity of the right hip.? There is no visible dislocation.? No significant anterior posterior displacement.? The left hip is intact.? Pelvic ring appears intact.? No suspicious bony lesions.? ? Soft tissues:? The visualized bowel gas pattern is normal.? No suspicious soft tissue calcifications.? ? ? IMPRESSION:? ? 1. Intertrochanteric right hip fracture without dislocation. ? Dictated by: Sharron Martinez M.D. on 05/20/2022 at 22:51 ? ? Approved by: Sharron Martinez M.D. on 05/20/2022 at 22:52 ? Discharge Plan Departure Patient Disposition: Admitted As Inpatient Clinical Impression: Closed fracture of right hip Admit Date/Time: 05/20/22 22:47 Admit Provider: Blane Husain
[2022-05-20] MEDS: SODIUM CHLORIDE 0.9% 1,000 ML 125 ML IV (22:26)
[2022-05-20] MEDS: fentaNYL 100 MCG/2 ML INJ 25 MCG IV (22:43)
[2022-05-20 22:47] LABS: Prothrombin Time 60.4 SECONDS (10.1-12.7)
[2022-05-20 22:49] LABS: INR 5.2 (0.9-1.3)
--- NOTE | 2022-05-20 22:51 | PC.NURSE ---
This RN entered pt room and pt endorsed I just want to go to sleep and not wake up. This RN questioned further and determined pt has not been recently suicidal, does not have a plan or intent on harming herself. Pt stated that she has been declining over the past few years and feels useless and like a burden to her family. ER notified, Inpatient RN Johnathon notified, and inpatient provider Dr. Husain notified. Pt placed as low risk at this time.
[2022-05-20 22:55] VITALS: BMI 18.3
--- NOTE | 2022-05-20 22:56 | PC.NURSE ---
Dr. Husain also notified of pt elevated INR of 5.2 at this time.
--- NOTE | 2022-05-20 22:59 | PM.HP.1 ---
History of Present Illness History of Present Illness Date Patient Seen: 05/20/22 Time Patient Seen: 22:30 Chief complaint: Fall hip pain Narrative: Ms. Nogueira is an 86W with PMH HTN, HL, s/p ppm, presumed afib who presents after a fall. She was attempting to stand to have a lidocaine patch placed and feel on her right hip and hit her head. She did not lose consciousness. She had significant hip pain and was unable to ambulate. She denied any shortness of breath, or chest pain. In the ED workup was done, vitals notable for elevated blood pressure. Labs notable for WBC 3.7, hgb 11.9, plts 108. Creatinine 1.01. INR 5.2. COVID positive. Hip xray shows right intertrochanter fracture. CT head showed old CVA. She was admitted for further treatment. Social history: no smoking, no drinking Family history: Father with CAD Patient History Family & Social History Safety & Behavioral: Feels Safe in Current Yes Environment Tobacco & Substance use: Smoking Status Never smoker alcohol intake frequency 0-2 drinks per day Substance Use Type does not use Meds Home Medications and Allergies Allergies Allergy/AdvReac Type Severity Reaction Status Date / Time codeine Allergy Intermediate Vomiting Verified 04/01/21 15:27 Review of Systems Review of Systems Narrative: 14 systems reviewed and negative aside from what is noted in HPI Exam Vital Signs (past 8 hours): - 05/20/22 21:37 05/20/22 21:40 05/20/22 21:46 Temperature 98 F Pulse Rate 69 66 64 Respiratory Rate 18 Blood Pressure 160/72 H Pulse Oximetry 98 98 97 Oxygen Delivery Method Room Air 05/20/22 21:46 05/20/22 22:00 05/20/22 22:19 Temperature Pulse Rate 61 66 Respiratory Rate 23 Blood Pressure 149/65 H Pulse Oximetry 94 97 Oxygen Delivery Method 05/20/22 22:19 Temperature Pulse Rate Respiratory Rate Blood Pressure 161/72 H Pulse Oximetry Oxygen Delivery Method Oxygen Delivery Method Room Air Narrative Exam Narrative: GEN: thin, frail, tachypneic HEENT: moist mucous membranes, PERRL NECK: trachea midline, no JVD PULM: poor air movement bilaterally, otherwise clear CV: regular rate and rhythm, no murmurs ABD: soft, nontender, nondistended, no organomegaly EXT: warm and well perfused with no edema, R hip with tenderness, externally rotated NEURO: awake, alert, oriented, no focal deficits Objective Labs Result Diagrams: 05/20/22 21:47 05/20/22 21:47 Labs: Laboratory Results - last 24 hr 05/20/22 05/20/22 05/20/22 21:47 21:47 21:47 WBC 3.7 L RBC 3.69 L Hgb 11.9 L Hct 35.3 L MCV 95.9 MCH 32.2 MCHC 33.5 RDW 13.6 Plt Count 108 L Neut % (Auto) 56.4 Lymph % (Auto) 33.5 [place] % (Auto) 8.2 Eos % (Auto) 1.6 L Baso % (Auto) 0.3 Neut # (Auto) 2100 Lymph # (Auto) 1300 [place] # (Auto) 300 Eos # (Auto) 100 Baso # (Auto) 0 PT INR Sodium 143 Potassium 3.6 Chloride 107 Carbon Dioxide 32 BUN 52 H Creatinine 1.01 Estimated GFR 55 L BUN/Creatinine Ratio 51.5 H Glucose 136 H Calcium 8.7 Total Bilirubin 0.7 AST 57 H ALT 33 Alkaline Phosphatase 220 H Total Protein 7.1 Albumin 3.5 Globulin 3.6 Albumin/Globulin Ratio 1.0 SARS-CoV-2 (PCR) Positive H 05/20/22 21:47 WBC RBC Hgb Hct MCV MCH MCHC RDW Plt Count Neut % (Auto) Lymph % (Auto) [place] % (Auto) Eos % (Auto) Baso % (Auto) Neut # (Auto) Lymph # (Auto) [place] # (Auto) Eos # (Auto) Baso # (Auto) PT 60.4 H INR 5.2 H* Sodium Potassium Chloride Carbon Dioxide BUN Creatinine Estimated GFR BUN/Creatinine Ratio Glucose Calcium Total Bilirubin AST ALT Alkaline Phosphatase Total Protein Albumin Globulin Albumin/Globulin Ratio SARS-CoV-2 (PCR) Assessment & Plan Assessment & Plan narrative: Ms. Nogueira is an 86W with PMH possible atrial fibrillation, on coumadin, s/p PPM, HTN who presents with a fall found to have an acute hip fracture. 1. Acute right hip fracture -secondary to mechanical fall -imaging confirms right sided intertrochanter fracture -ordered for pain medications -NPO at midnight -orthopedic surgery consulted 2. Tachypnea and COVID positive -tachypnea may be secondary to pain -chest xray to eval for evidence of pneumonia -not hypoxemic on admission, no indication for treatment currently 3. Presume atrial fibrillation on coumadin, s/p PPM continue metoprolol -hold coumadin 4. Coagulopathy -secondary to coumadin, and infection -ordered for vitamin K -recheck in AM 5. Hypertension -continue home medications once reconciled 6. Cachexia -dietary consult 7. Pancytopenia -trend daily -no indication for transfusion -suspect secondary to infection 8. Old CVA -noted on CT head incidentally CODE: DNR Proxy: Tan Corea, friend I have utilized all available resources to reconcile the patient's home medications. Time Spent With Patient Critical Care time: I spent a total of [] minutes of critical care time on this patient's care today; this time is exclusive of procedural time. Quality MIPS - Admit I confirm the patient?s Advance Care Plan is present, Code status is documented, Surrogate decision maker is in patient?s record [If Yes, STOP here]: Yes
--- NOTE | 2022-05-20 23:06 | DI.RAD.S_ITS ---
PROCEDURE: XR CHEST 1V INDICATIONS: tachypnea TECHNIQUE: One view of the chest was acquired. COMPARISON: None. FINDINGS: Surgical changes and devices: Median sternotomy changes. Aortic valvuloplasty. Dual lead right-sided pacemaker. Lungs and pleura: The lungs are hyperinflated and hyperlucent. No focal consolidation effusion, or pneumothorax. Mediastinum: Mild cardiomegaly. Atherosclerotic aortic arch. No central venous congestion. Bones and chest wall: Deformity multiple bilateral prior rib fractures. Probable midthoracic vertebral body compression fracture, and mild kyphoscoliosis. IMPRESSION: 1. Mild cardiomegaly. 2. No other acute cardiopulmonary disease. 3. Prior rib and probable vertebral body fractures. Dictated by: Sharron Martinez M.D. on 05/20/2022 at 23:51 Approved by: Sharron Martinez M.D. on 05/20/2022 at 23:57
[2022-05-20 23:07] LABS: Appearance Urine UA CLEAR; Bilirubin Urine UA NEGATIVE (NEGATIVE); Color Urine UA YELLOW; Glucose Urine UA NEGATIVE (Negative); Ketones Urine UA NEGATIVE (NEGATIVE); Leukocyte Esterase Urine UA 2+ (NEGATIVE); Nitrite Urine UA NEGATIVE (Negative); Occult Blood Urine UA 1+ (Negative); Protein Urine UA TRACE (Negative); Urobilinogen Urine UA 0.2 E.U./dL (0.2)
[2022-05-20 23:18] LABS: NT-proBNP (BNP-Adult 18+) 2800 pg/mL (<450)
[2022-05-20 23:24] LABS: Bacteria Urine Many (>30); Culture Indicated Urine Specimen Cultured; RBC Urine 0-1/HPF (0-5/HPF); WBC Urine 1-5/HPF (0-5/HPF); pH Urine UA 7.5 (4.5-8.0)
[2022-05-20] MEDS: MORPHINE 2 MG/ML INJ IV (23:36)
[2022-05-21] VITALS (9 sets, daily range): BP systolic 133–157; BP diastolic 61–74; PULSE 60–71; RESP 16–19; TEMP 36.3–37.5; O2SAT 90–100; BMI 18.3
[2022-05-21] MEDS: PHYTONADIONE (VIT K1) 5 MG in SODIUM CHLORIDE 0.9% 100 ML 201 MG IV (00:27)
--- NOTE | 2022-05-21 00:57 | PC.NURSE ---
Pt. admitted to the unit for right hip fracture due to a mechanical fall at home. Pt. arrived to the unit via stretcher. Pt. is alert and oriented, afebrile, VSS and c/o pain to the right hip with position change otherwise if laying still pain is 2/10. Morphine IV administered with good outcome. Pt. consequently is also positive for Covid 19 without accompanying symptoms. Pt. is on RA with sats in high 90's, lungs slightly diminished with few fine crackles to the left base. Pt. also has scattered bruising to both arms mostly on the right. Pt. also has a bruise to her left taveras. Sacrum is slightly pink, blanchable and no pressure sore. Oriented pt. to call light use and bed controls, bed alarm also activated. Vit. K 5 mg administered for INR-5.4, recheck in am.
[2022-05-21] MEDS: MORPHINE 2 MG/ML INJ IV ×4 (03:06→19:32)
[2022-05-21 05:49] LABS: Add Manual Diff / Slide Review NO; Basophils Absolute Auto 0 /uL (0-100); Basophils Percent Auto 0.1 % (0-2); Eosinophils Absolute Auto 0 /uL (0-450); Eosinophils Percent Auto 0.3 % (2-4); Hematocrit 36.5 % (36-46); Hemoglobin 12.2 g/dL (12.0-16.0); Lymphocytes Absolute Auto 1500 /uL (1100-4500); Lymphocytes Percent Auto 20.4 % (25-40); Mean Corpuscular HGB Conc 33.3 % (30-36); Mean Corpuscular Hemoglobin 31.9 PG (26-34); Mean Corpuscular Volume 95.6 fL (80-100); Monocytes Absolute Auto 700 /uL (0-900); Monocytes Percent Auto 10.1 % (3-14); Neutrophils Absolute Auto 4900 /uL (1500-7000); Neutrophils Percent Auto 69.1 % (50-75); Platelet Count 110 X10^3/uL (150-400); Red Blood Cell Count 3.82 X10^6/uL (4.0-5.2); Red Cell Distribution Width 13.6 % (11.6-14.8); White Blood Cell Count 7.1 X10^3/uL (4.5-11.0)
[2022-05-21 05:54] LABS: INR 2.5 (0.9-1.3); Prothrombin Time 28.5 SECONDS (10.1-12.7)
[2022-05-21 05:58] LABS: BUN Creatinine Ratio 51.1 (6-22); Blood Urea Nitrogen 47 mg/dL (7-17); Calcium 8.7 mg/dL (8.4-10.2); Carbon Dioxide 34 mmol/L (22-32); Chloride 109 mmol/L (98-107); Estimated Glomerular Filt Rate > 60 mL/min (>60); Glucose 117 mg/dL (80-110); HEMOLYSIS 15 (0-50); Potassium 4.4 mmol/L (3.4-5.1); Sodium 146 mmol/L (137-145)
--- NOTE | 2022-05-21 07:00 | PM.PN.1 ---
Exam Vital Signs (past 8 hours): - 05/20/22 23:55 05/21/22 00:00 05/21/22 06:00 Temperature 98.8 F 99.1 F Pulse Rate 62 65 Respiratory Rate 19 19 Blood Pressure 157/67 H 148/67 H Pulse Oximetry 96 97 Oxygen Delivery Method Room Air Oxygen Delivery Method Room Air Narrative Exam Narrative: GEN: thin, frail, tachypneic HEENT: moist mucous membranes, PERRL NECK: trachea midline, no JVD PULM: poor air movement bilaterally, otherwise clear CV: regular rate and rhythm, no murmurs ABD: soft, nontender, nondistended, no organomegaly EXT: warm and well perfused with no edema, R hip with tenderness, externally rotated NEURO: awake, alert, oriented, no focal deficits Objective Labs Result Diagrams: 05/21/22 05:28 05/21/22 05:28 Labs: Laboratory Results - last 24 hr 05/20/22 05/20/22 05/20/22 21:47 21:47 21:47 WBC 3.7 L RBC 3.69 L Hgb 11.9 L Hct 35.3 L MCV 95.9 MCH 32.2 MCHC 33.5 RDW 13.6 Plt Count 108 L Neut % (Auto) 56.4 Lymph % (Auto) 33.5 [place] % (Auto) 8.2 Eos % (Auto) 1.6 L Baso % (Auto) 0.3 Neut # (Auto) 2100 Lymph # (Auto) 1300 [place] # (Auto) 300 Eos # (Auto) 100 Baso # (Auto) 0 PT INR Sodium 143 Potassium 3.6 Chloride 107 Carbon Dioxide 32 BUN 52 H Creatinine 1.01 Estimated GFR 55 L BUN/Creatinine Ratio 51.5 H Glucose 136 H Calcium 8.7 Total Bilirubin 0.7 AST 57 H ALT 33 Alkaline Phosphatase 220 H NT-Pro-B Natriuret Pep Total Protein 7.1 Albumin 3.5 Globulin 3.6 Albumin/Globulin Ratio 1.0 Urine Color Urine Appearance Urine pH Ur Specific [place] Urine Protein Urine Glucose (UA) Urine Ketones Urine Occult Blood Urine Nitrate Urine Bilirubin Urine Urobilinogen Ur Leukocyte Esterase Urine RBC Urine WBC Urine Bacteria Ur Culture Indicated? Nasal Screen MRSA (PCR) SARS-CoV-2 (PCR) Positive H 05/20/22 05/20/22 05/20/22 21:47 21:47 22:37 WBC RBC Hgb Hct MCV MCH MCHC RDW Plt Count Neut % (Auto) Lymph % (Auto) [place] % (Auto) Eos % (Auto) Baso % (Auto) Neut # (Auto) Lymph # (Auto) [place] # (Auto) Eos # (Auto) Baso # (Auto) PT 60.4 H INR 5.2 H* Sodium Potassium Chloride Carbon Dioxide BUN Creatinine Estimated GFR BUN/Creatinine Ratio Glucose Calcium Total Bilirubin AST ALT Alkaline Phosphatase NT-Pro-B Natriuret Pep 2800 H Total Protein Albumin Globulin Albumin/Globulin Ratio Urine Color Yellow Urine Appearance Clear Urine pH 7.5 Ur Specific [place] 1.010 Urine Protein Trace H Urine Glucose (UA) Negative Urine Ketones Negative Urine Occult Blood 1+ H Urine Nitrate Negative Urine Bilirubin Negative Urine Urobilinogen 0.2 Ur Leukocyte Esterase 2+ H Urine RBC 0-1/hpf Urine WBC 1-5/hpf Urine Bacteria Many (>30) H Ur Culture Indicated? Specimen cultured Nasal Screen MRSA (PCR) SARS-CoV-2 (PCR) 05/21/22 05/21/22 05/21/22 00:00 05:28 05:28 WBC 7.1 D RBC 3.82 L Hgb 12.2 Hct 36.5 MCV 95.6 MCH 31.9 MCHC 33.3 RDW 13.6 Plt Count 110 L Neut % (Auto) 69.1 Lymph % (Auto) 20.4 L [place] % (Auto) 10.1 Eos % (Auto) 0.3 L Baso % (Auto) 0.1 Neut # (Auto) 4900 Lymph # (Auto) 1500 [place] # (Auto) 700 Eos # (Auto) 0 Baso # (Auto) 0 PT 28.5 H D INR 2.5 H Sodium Potassium Chloride Carbon Dioxide BUN Creatinine Estimated GFR BUN/Creatinine Ratio Glucose Calcium Total Bilirubin AST ALT Alkaline Phosphatase NT-Pro-B Natriuret Pep Total Protein Albumin Globulin Albumin/Globulin Ratio Urine Color Urine Appearance Urine pH Ur Specific [place] Urine Protein Urine Glucose (UA) Urine Ketones Urine Occult Blood Urine Nitrate Urine Bilirubin Urine Urobilinogen Ur Leukocyte Esterase Urine RBC Urine WBC Urine Bacteria Ur Culture Indicated? Nasal Screen MRSA (PCR) Negative for mrsa SARS-CoV-2 (PCR) 05/21/22 05:28 WBC RBC Hgb Hct MCV MCH MCHC RDW Plt Count Neut % (Auto) Lymph % (Auto) [place] % (Auto) Eos % (Auto) Baso % (Auto) Neut # (Auto) Lymph # (Auto) [place] # (Auto) Eos # (Auto) Baso # (Auto) PT INR Sodium 146 H Potassium 4.4 Chloride 109 H Carbon Dioxide 34 H BUN 47 H Creatinine 0.92 Estimated GFR > 60 BUN/Creatinine Ratio 51.1 H Glucose 117 H Calcium 8.7 Total Bilirubin AST ALT Alkaline Phosphatase NT-Pro-B Natriuret Pep Total Protein Albumin Globulin Albumin/Globulin Ratio Urine Color Urine Appearance Urine pH Ur Specific [place] Urine Protein Urine Glucose (UA) Urine Ketones Urine Occult Blood Urine Nitrate Urine Bilirubin Urine Urobilinogen Ur Leukocyte Esterase Urine RBC Urine WBC Urine Bacteria Ur Culture Indicated? Nasal Screen MRSA (PCR) SARS-CoV-2 (PCR) [facility] Social History household members: family and other Smoking Status: Never smoker alcohol intake: current Assessment & Plan Assessment & Plan narrative: Ms. Nogueira is an 86W with PMH possible atrial fibrillation, on coumadin, s/p PPM, HTN who presents with a fall found to have an acute hip fracture. 1. Acute right hip fracture -secondary to mechanical fall, patient denies losing consciousness but simply falling -imaging confirms right sided intertrochanter fracture -ordered for pain medications -NPO at midnight 05/22 -orthopedic surgery consulted and will take for surgery on 05/22 2. Tachypnea and COVID positive -tachypnea may be secondary to pain -chest xray normal -not hypoxemic on admission, no indication for treatment currently 3. Presume atrial fibrillation on coumadin, s/p PPM continue metoprolol -hold coumadin 4. Coagulopathy -secondary to coumadin, and infection -ordered for vitamin K -INR 2.5 -hold warfarin for surgery -trend INR daily 5. Hypertension -continue home metoprolol, aldactone, lasix and losartan 6. Swallowing difficulty with malnutrition and cachexia -patient notes history of esophageal stricture and chronic regurgitation of solids, she only drinks ensures -speech eval -dietary consult 7. Pancytopenia -trend daily -no indication for transfusion -suspect secondary to infection 8. Old CVA -noted on CT head incidentally CODE: DNR Proxy: Tan Corea, friend I have utilized all available resources to reconcile the patient's home medications. Time Spent With Patient Critical Care time: I spent a total of [] minutes of critical care time on this patient's care today; this time is exclusive of procedural time. Quality VTE Deep Vein Thrombosis/Pulmonary Embolism Present on Admission: No
[2022-05-21] MEDS: ONDANSETRON 4 MG/2 ML INJ IV (08:14)
[2022-05-21] MEDS: SODIUM CHLORIDE 0.45% 1,000 ML 100 ML IV ×2 (09:24→19:10)
--- NOTE | 2022-05-21 10:42 | P.CONS_ITS ---
History of Present Illness Consult details Date Patient Seen: 05/21/22 Time Patient Seen: 10:42 Chief complaint: Fall hip pain Requesting provider: Blane Husain Narrative: Ms Nogueira is an 86 year old woman who fell from standing last night, landing on her right hip and striking her head. Denies LOC, head CT negative. She lives with her [id number] and also has a caregiver. At baseline she uses a rolling walker and is not very active. She has a pacemaker, presumed atrial fibrillation on coumadin. Meds Home Medications and Allergies Allergies Allergy/AdvReac Type Severity Reaction Status Date / Time codeine Allergy Intermediate Vomiting Verified 04/01/21 15:27 Review of Systems Review of Systems ROS: Yes All systems reviewed with the patient and are negative except as otherwise documented Exam Vital Signs (past 8 hours): - 05/21/22 06:00 05/21/22 07:00 05/21/22 07:00 Temperature 99.1 F Pulse Rate 65 Respiratory Rate 19 Blood Pressure 148/67 H Pulse Oximetry 97 94 Oxygen Delivery Method Room Air Room Air 05/21/22 08:34 Temperature 98.1 F Pulse Rate 60 Respiratory Rate 18 Blood Pressure 138/70 Pulse Oximetry 90 L Oxygen Delivery Method Oxygen Delivery Method Room Air Narrative Exam Narrative: Right DF, PF, EHL intact. RLE is warm and well perfused, no skin breakdown noted. Objective Labs Result Diagrams: 05/21/22 05:28 05/21/22 05:28 Labs: Laboratory Results - last 24 hr 05/20/22 05/20/22 05/20/22 21:47 21:47 21:47 WBC 3.7 L RBC 3.69 L Hgb 11.9 L Hct 35.3 L MCV 95.9 MCH 32.2 MCHC 33.5 RDW 13.6 Plt Count 108 L Neut % (Auto) 56.4 Lymph % (Auto) 33.5 [place] % (Auto) 8.2 Eos % (Auto) 1.6 L Baso % (Auto) 0.3 Neut # (Auto) 2100 Lymph # (Auto) 1300 [place] # (Auto) 300 Eos # (Auto) 100 Baso # (Auto) 0 PT INR Sodium 143 Potassium 3.6 Chloride 107 Carbon Dioxide 32 BUN 52 H Creatinine 1.01 Estimated GFR 55 L BUN/Creatinine Ratio 51.5 H Glucose 136 H Calcium 8.7 Total Bilirubin 0.7 AST 57 H ALT 33 Alkaline Phosphatase 220 H NT-Pro-B Natriuret Pep Total Protein 7.1 Albumin 3.5 Globulin 3.6 Albumin/Globulin Ratio 1.0 Urine Color Urine Appearance Urine pH Ur Specific [place] Urine Protein Urine Glucose (UA) Urine Ketones Urine Occult Blood Urine Nitrate Urine Bilirubin Urine Urobilinogen Ur Leukocyte Esterase Urine RBC Urine WBC Urine Bacteria Ur Culture Indicated? Nasal Screen MRSA (PCR) SARS-CoV-2 (PCR) Positive H 05/20/22 05/20/22 05/20/22 21:47 21:47 22:37 WBC RBC Hgb Hct MCV MCH MCHC RDW Plt Count Neut % (Auto) Lymph % (Auto) [place] % (Auto) Eos % (Auto) Baso % (Auto) Neut # (Auto) Lymph # (Auto) [place] # (Auto) Eos # (Auto) Baso # (Auto) PT 60.4 H INR 5.2 H* Sodium Potassium Chloride Carbon Dioxide BUN Creatinine Estimated GFR BUN/Creatinine Ratio Glucose Calcium Total Bilirubin AST ALT Alkaline Phosphatase NT-Pro-B Natriuret Pep 2800 H Total Protein Albumin Globulin Albumin/Globulin Ratio Urine Color Yellow Urine Appearance Clear Urine pH 7.5 Ur Specific [place] 1.010 Urine Protein Trace H Urine Glucose (UA) Negative Urine Ketones Negative Urine Occult Blood 1+ H Urine Nitrate Negative Urine Bilirubin Negative Urine Urobilinogen 0.2 Ur Leukocyte Esterase 2+ H Urine RBC 0-1/hpf Urine WBC 1-5/hpf Urine Bacteria Many (>30) H Ur Culture Indicated? Specimen cultured Nasal Screen MRSA (PCR) SARS-CoV-2 (PCR) 05/21/22 05/21/22 05/21/22 00:00 05:28 05:28 WBC 7.1 D RBC 3.82 L Hgb 12.2 Hct 36.5 MCV 95.6 MCH 31.9 MCHC 33.3 RDW 13.6 Plt Count 110 L Neut % (Auto) 69.1 Lymph % (Auto) 20.4 L [place] % (Auto) 10.1 Eos % (Auto) 0.3 L Baso % (Auto) 0.1 Neut # (Auto) 4900 Lymph # (Auto) 1500 [place] # (Auto) 700 Eos # (Auto) 0 Baso # (Auto) 0 PT 28.5 H D INR 2.5 H Sodium Potassium Chloride Carbon Dioxide BUN Creatinine Estimated GFR BUN/Creatinine Ratio Glucose Calcium Total Bilirubin AST ALT Alkaline Phosphatase NT-Pro-B Natriuret Pep Total Protein Albumin Globulin Albumin/Globulin Ratio Urine Color Urine Appearance Urine pH Ur Specific [place] Urine Protein Urine Glucose (UA) Urine Ketones Urine Occult Blood Urine Nitrate Urine Bilirubin Urine Urobilinogen Ur Leukocyte Esterase Urine RBC Urine WBC Urine Bacteria Ur Culture Indicated? Nasal Screen MRSA (PCR) Negative for mrsa SARS-CoV-2 (PCR) 05/21/22 05:28 WBC RBC Hgb Hct MCV MCH MCHC RDW Plt Count Neut % (Auto) Lymph % (Auto) [place] % (Auto) Eos % (Auto) Baso % (Auto) Neut # (Auto) Lymph # (Auto) [place] # (Auto) Eos # (Auto) Baso # (Auto) PT INR Sodium 146 H Potassium 4.4 Chloride 109 H Carbon Dioxide 34 H BUN 47 H Creatinine 0.92 Estimated GFR > 60 BUN/Creatinine Ratio 51.1 H Glucose 117 H Calcium 8.7 Total Bilirubin AST ALT Alkaline Phosphatase NT-Pro-B Natriuret Pep Total Protein Albumin Globulin Albumin/Globulin Ratio Urine Color Urine Appearance Urine pH Ur Specific [place] Urine Protein Urine Glucose (UA) Urine Ketones Urine Occult Blood Urine Nitrate Urine Bilirubin Urine Urobilinogen Ur Leukocyte Esterase Urine RBC Urine WBC Urine Bacteria Ur Culture Indicated? Nasal Screen MRSA (PCR) SARS-CoV-2 (PCR) PFSH Social History household members: other Tobacco & Substance Use Smoking Status: Never smoker alcohol intake: current Assessment & Plan Assessment and plan (1) Closed fracture of right hip: Status: Acute Plan: Coumadin held, INR 2.5 this morning. Discussed case w/ Dr Henderson, plan for ORIF of RIGHT intertrochanteric fracture tomorrow if INR appropriate. NPO after midnight. Time Spent With Patient Critical Care time: I spent a total of [] minutes of critical care time on this patient's care today; this time is exclusive of procedural time.
--- NOTE | 2022-05-21 12:04 | CM.DANOTE ---
DCP: Case received, EMR reviewed. Have not been able to meet with patient secondary to her being positive for COVID. Patient sleeping. Nurse asked patient if DC Manager Community Relations could call friend, Tan Corea, who is listed on face sheet, she gave permission. Patient also has a caregiver named Nguyen, according to nurseMildred, and she had spoken to her. Was able to speak with Tan via phone, introduced self and role, and completed DCP assessment based upon information currently available. Patient is an 86 year old female who admitted yesterday evening to the care of the hospitalist team. PCP: Dr. Kerns. Payer: confirmed: [facility]. Patient came to the hospital via ambulance secondary to a ground level fall that occurred at home. According to notes, patient had been standing at her home, and a family member was attempting to place a patch on her back, and she lost her balance and fell, landing on her right side. Patient was brought to the ER via ambulance secondary to having right intertrochanteric fracture. Patient's surgery is being held for today due to INR, but will be having surgery tomorrow. Patient also has history of cardiac issues, she has a pacemaker, presumed atrial fibrillation, as she is on Coumadin. Patient is also positive for COVID 19. Could not enter patient's room, secondary to her being on COVID. Nurse, Mildred, had spoken briefly with patient's caregiver, Nguyen. Asked nurse to ask patient when she enters room, if this DC Manager Community Relations can call friend, Tan Corea, who is listed as contacts. Nurse indicated, she gave permission to call Tan. Spoke to Tan Corea, via phone. Confirmed that he is patient's [id number], and patient lives with him in [place]. She also has a private caregiver named Nguyen, who comes in Mon-Monday between 6:00-8:00 pm to assist with bathing, or any other trade sales assistant that patient may need. Patient uses a FWW at baseline. Her brother in law stated, she has quite the health history. He mentioned cardiac, and also stated, she has not been able to eat, and as had swallowing issues. He stated, I don't like any of the providers on [facility], and want to look for someone else as her primary care provider. He would like to be updated on he condition, he already knows she was positive for COVID. He indicated that he had COVID, but months ago. Mentioned during team rounds that the barrier will be her being positive for COVID. Hospitalist indicated that with new CDC guidelines, can do two rapid tests to see if they come out positive. Rapid did come back positive. Hospitalist indicated, it's the antigens that are normally checked, and they don't do them here, so she remains COVID positive. Updated hospitalist, that patient has had swallowing issues, and nurse, Mildred, indicated that patient stated, she can't really tolerate proteins, and can't tolerate solid food as well. Patient has been sustaining her self on Boost shakes. Hospitalist will order dietary and speech eval as well.Will see how patient does post surgery. P: DCP to continue to follow closely, and will continue to keep Tan updated. Patient most likely will need skilled, but due to COVID, may need home plan. May also need to see if her caregiver can increase her caregiving hours. Georgina Hernandes RN/Bridge Ironworker Discharge Planning/Care Management CM Discharge Assessment Start: 05/21/22 11:57 Freq: Status: Active Protocol: Document 05/21/22 11:58 (Rec: 05/21/22 12:04 [id number]) Discharge Planning Assessment Assigned Supervisor Liquefaction Georgina Hernandes RN/Bridge Ironworker Advance Directives? No History Provided By Patient,Medical Record Household Members other Type of transporation used prior to Relies on Others admit Independent with ADL's No Is patient alert and oriented? Yes Needs Assistance With Bathing,Meal Prep,Managing Medications,Home Chores / Shopping Caregiver for Another No DME Already Rented / Owned FWW / Walker Barriers to Discharge Yes Comment Patient has a fractured hip, and is positive for COVID. Discharge Plan [facility] Facility Transportation Arrangement Facility, or caregiver. Referrals Initiated Other Additional Comment Patient medically unstable at this time, has not had surgery secondary to having increased INR. Whiteboard Updated in Patient Room with No name and ext. # of Supervisor Liquefaction Comment Patient is positive for COVID Review Status In Process Next Review Type Continued Stay Review
[2022-05-21 12:08] LABS: COVID19 -Nasal RAPID POSITIVE (Negative)
[2022-05-21] MEDS: SODIUM CHLORIDE NASAL SPRAY 1 SPRAY NASAL (14:29)
--- NOTE | 2022-05-21 15:08 | PC.NURSE ---
Addendum entered by Alicia Freeman R.N. 05/21/22 15:19: Mepilex Sacrum border applied to back - blanchable redness noted when pt turned to L side. Original Note: 1500 - after last pain med given, pt desat to 88%. denies shortness of breath and when she's awake sats 95%, then as she falls asleep, sats drop to 88%. Placed on 2l/NC and sats maintaining @ 100%. Pt alternately turns from left side to supine with HOB elevated. Pillow between legs to support r hip. OR planned for tomorrow if INR back to normal range. Liquids offered per pt request, unable to swallow solid foods. Pt able to make needs known, resting comfortably at present.
[2022-05-22] VITALS (21 sets, daily range): BP systolic 118–151; BP diastolic 53–72; PULSE 70–85; RESP 12–28; TEMP 35.7–37.6; O2SAT 2–100
--- NOTE | 2022-05-22 | DI.RAD.S_ITS ---
PROCEDURE: XR HIP W PEL IF DONE RT 2V INDICATIONS: RT HIP SURGERY TECHNIQUE: 3 intraoperative view(s) of the right hip(s). COMPARISON: [facility], , XR HIP W PEL IF DONE RT 2V, 05/20/2022, 21:41. FINDINGS: Bones: No fractures or dislocations. Pelvic ring appears intact. No suspicious bony lesions. ORIF of the right hip has been performed. Soft tissues: The visualized bowel gas pattern is normal. No suspicious soft tissue calcifications. IMPRESSION: Intraoperative imaging obtained during right hip ORIF. Dictated by: Gayla Limon M.D. on 05/22/2022 at 10:57 Approved by: Gayla Limon M.D. on 05/22/2022 at 10:58
[2022-05-22] MEDS: MORPHINE 2 MG/ML INJ IV ×3 (00:34→07:53)
[2022-05-22 05:24] LABS: Add Manual Diff / Slide Review NO; Basophils Absolute Auto 0 /uL (0-100); Basophils Percent Auto 0.3 % (0-2); Eosinophils Absolute Auto 0 /uL (0-450); Eosinophils Percent Auto 0.4 % (2-4); Hematocrit 30.7 % (36-46); Hemoglobin 10.3 g/dL (12.0-16.0); Lymphocytes Absolute Auto 1000 /uL (1100-4500); Lymphocytes Percent Auto 19.6 % (25-40); Mean Corpuscular HGB Conc 33.5 % (30-36); Mean Corpuscular Hemoglobin 32.4 PG (26-34); Mean Corpuscular Volume 96.9 fL (80-100); Monocytes Absolute Auto 600 /uL (0-900); Monocytes Percent Auto 11.2 % (3-14); Neutrophils Absolute Auto 3600 /uL (1500-7000); Neutrophils Percent Auto 68.5 % (50-75); Platelet Count 90 X10^3/uL (150-400); Red Blood Cell Count 3.17 X10^6/uL (4.0-5.2); Red Cell Distribution Width 13.4 % (11.6-14.8); White Blood Cell Count 5.3 X10^3/uL (4.5-11.0)
[2022-05-22 05:26] LABS: INR 1.5 (0.9-1.3)
[2022-05-22 05:30] LABS: Magnesium 1.6 mg/dL (1.6-2.3)
[2022-05-22 05:32] LABS: BUN Creatinine Ratio 45.2 (6-22); Blood Urea Nitrogen 28 mg/dL (7-17); Calcium 6.5 mg/dL (8.4-10.2); Carbon Dioxide 24 mmol/L (22-32); Chloride 102 mmol/L (98-107); Estimated Glomerular Filt Rate > 60 mL/min (>60); Glucose 72 mg/dL (80-110); HEMOLYSIS 15 (0-50); Potassium 3.7 mmol/L (3.4-5.1); Sodium 127 mmol/L (137-145)
--- NOTE | 2022-05-22 08:44 | P.PN_ITS ---
Subjective Subjective Date Patient Seen: 05/22/22 Time Patient Seen: 16:00 Interval history: Patient very tired. She is intermittently tearful about her state of affairs and that she cannot eat and is now only 85lbs. No pain in right hip. Exam Vital Signs (past 8 hours): - 05/22/22 06:00 05/22/22 07:53 05/22/22 08:12 Temperature 99.1 F 99.7 F H 99.7 F H Pulse Rate 70 70 Respiratory Rate 18 20 Blood Pressure 140/60 128/58 L Pulse Oximetry 99 99 Oxygen Delivery Method Oxygen Flow Rate 1 1 05/22/22 07:00 05/22/22 07:00 Temperature Pulse Rate Respiratory Rate Blood Pressure Pulse Oximetry 99 Oxygen Delivery Method Nasal Cannula Nasal Cannula Oxygen Flow Rate 1 Fraction of Inspired Oxygen 28 SaO2/FiO2 Ratio 339 Oxygen Delivery Method Nasal Cannula Oxygen Flow Rate 1 Narrative Exam Narrative: GEN: thin, frail, tearful HEENT: moist mucous membranes, PERRL NECK: trachea midline, no JVD PULM: poor air movement bilaterally, otherwise clear CV: regular rate and rhythm, no murmurs ABD: soft, nontender, nondistended, no organomegaly EXT: warm and well perfused with no edema, R hip with with post-surgical dressings NEURO: awake, alert, oriented, no focal deficits Objective Labs Result Diagrams: 05/22/22 04:20 05/22/22 12:10 Labs: Laboratory Results - last 24 hr 05/21/22 05/22/22 05/22/22 11:30 04:20 04:20 WBC 5.3 RBC 3.17 L Hgb 10.3 L Hct 30.7 L MCV 96.9 MCH 32.4 MCHC 33.5 RDW 13.4 Plt Count 90 L Neut % (Auto) 68.5 Lymph % (Auto) 19.6 L Mcdonough % (Auto) 11.2 Eos % (Auto) 0.4 L Baso % (Auto) 0.3 Neut # (Auto) 3600 Lymph # (Auto) 1000 L Mcdonough # (Auto) 600 Eos # (Auto) 0 Baso # (Auto) 0 PT INR Sodium Potassium Chloride Carbon Dioxide BUN Creatinine Estimated GFR BUN/Creatinine Ratio Glucose Calcium Magnesium 1.6 SARS-CoV-2 (PCR) Positive H 05/22/22 05/22/22 04:20 04:20 WBC RBC Hgb Hct MCV MCH MCHC RDW Plt Count Neut % (Auto) Lymph % (Auto) Mcdonough % (Auto) Eos % (Auto) Baso % (Auto) Neut # (Auto) Lymph # (Auto) Mcdonough # (Auto) Eos # (Auto) Baso # (Auto) PT 17.0 H D INR 1.5 H Sodium 127 L D Potassium 3.7 Chloride 102 Carbon Dioxide 24 BUN 28 H Creatinine 0.62 Estimated GFR > 60 BUN/Creatinine Ratio 45.2 H Glucose 72 L Calcium 6.5 L Magnesium SARS-CoV-2 (PCR) [facility] Social History household members: family and other Smoking Status: Never smoker alcohol intake: current Assessment & Plan Assessment & Plan narrative: Ms. Nogueira is an 86W with PMH possible atrial fibrillation, on coumadin, s/p PPM, HTN who presents with a fall found to have an acute hip fracture. 1. Acute right hip fracture s/p ORIF on 05/22 -secondary to mechanical fall, patient denies losing consciousness but simply falling -imaging confirms right sided intertrochanter fracture -orthopedic surgery took for surgery on 05/22 with repair -PT/OT 2. Tachypnea and COVID positive -tachypnea may be secondary to pain -chest xray normal -not hypoxemic on admission, no indication for treatment currently 3. Presume atrial fibrillation on coumadin, s/p PPM continue metoprolol -hold coumadin 4. Coagulopathy -secondary to coumadin, and infection -ordered for vitamin K -INR 2.5 -hold warfarin for surgery -trend INR daily 5. Hypertension -continue home metoprolol, aldactone, lasix and losartan 6. Swallowing difficulty with malnutrition and cachexia -patient notes history of esophageal stricture and chronic regurgitation of solids, she only drinks ensures -previous barium swallow in March 2022 showed dilated esophagus due to GE junction obstruction -dietary consult -may benefit from EGD 7. Pancytopenia -trend daily -no indication for transfusion -suspect secondary to infection 8. Old CVA -noted on CT head incidentally CODE: DNR Proxy: Tan Corea, friend I have utilized all available resources to reconcile the patient's home medications. Time Spent With Patient Critical Care time: I spent a total of [] minutes of critical care time on this patient's care today; this time is exclusive of procedural time. Quality VTE Deep Vein Thrombosis/Pulmonary Embolism Present on Admission: No
[2022-05-22] MEDS: LACTATED RINGERS 1,000 ML 42 ML IV (09:25)
[2022-05-22] MEDS: CEFAZOLIN VIAL 1 GM in SODIUM CHLORIDE 0.9% 100 ML IV ×2 (09:50→17:17)
[2022-05-22] MEDS: SODIUM CHLORIDE 0.9% 1,000 ML 125 ML IV (10:10)
--- NOTE | 2022-05-22 10:17 | SUR.OPER ---
Supine on padded [place] table with right leg secured in padded positioning boot and suspended in positioning spars, operative leg in traction per surgeon. Left leg on gel padded well leg daigle, secured with gauze roll.Head on one pillow. Arm on non-operative side secured on padded armboard <90 degrees abduction. Arm on operative side padded and resting across chest then secured with tape over sheet. Padded perineal post in place per surgeon.
[2022-05-22] MEDS: BUPIVACAINE 0.5% W/ EPI (PF) 30 ML VIAL INJ (10:25)
--- NOTE | 2022-05-22 10:56 | P.OP_ITS ---
Operative Date/Time/Diagnoses Date of procedure: 05/22/22 Time of procedure: 10:00 Pre-op diagnosis: Right proximal femur fracture Post-op diagnosis: same Procedure & Clinicians Procedure: Open reduction internal fixation right proximal femur fracture Same procedure as scheduled: Yes Indications: Right intertrochanteric femur fracture Surgeon: Deny Henderson Warehouse Loader: Nette Lubin Anesthesia Type: General Operative Notes Findings: Displaced intertrochanteric proximal femur fracture right Closure Type: primary Applied: implant(s) (Four hole 135 degree dynamic hip screw. 70 mm screw) Estimated Blood Loss (mL): 50 Procedure in detail: On date of service patient was met in the holding area where his operative site was signed and witnessed by the OR staff. Surgery was once again discussed with the patient in remaining questions or concerns he had were answered fully. Patient was taken back to the operating theater. Spinal anesthesia was administered and then patient was transferred to the fracture table. Great care was taken to ensure that all bony prominences were appropriately padded. Both legs were placed into traction boots but only the right leg was placed under distraction and internal rotation in order to reduce the fracture. C-arm was brought in to verify reduction the fracture. Once we were satisfied with overall reduction, the right leg was prepped and draped in the normal sterile fashion. Ten blade was used to incise through skin and fascial tissue. Deep knife was then used to incise through the ITB band. Villegas elevator was then used to elevate the vastus lateralis off the femur given us good visualization of the lateral femur. 135 degree guide was placed in a guide pin was placed into the femoral head. AP and lateral views were used to verify pin positioning. Once were satisfied with the position of the pin it was measured and an 80 mm screw was placed. This was then followed by a 4 hole 135 degree plate. The plate was then secured to the bone with fully threaded 4.5 cortical screws. Final x-rays were obtained. The wound was copiously irrigated and closed in layered fashion. Patient was taken to the PACU in stable condition. Complications: none Post-operative Condition: stable Disposition: Acute Care Plan for aftercare: Patient will be partially weight-bearing to the right hip.
[2022-05-22] MEDS: LACTATED RINGERS 1,000 ML 125 ML IV (11:54)
--- NOTE | 2022-05-22 11:59 | SUR.PHASEI ---
1130-Report called to floor RN. Vss. Denies pain in hip. Feels breathing better. expelling mod amt clear mucous. suctioned earlier x 1 orally. hob elevated higher. No change to rt hip dressing or csm rt LE. multiple bruises face,torso,arms and legs noted. iv redressed. Saline locked ivf. to floor by bed on 2l nc oxygen. 1140-care of patient transfered to floor RN. airborne/droplet precautions maintained.
--- NOTE | 2022-05-22 12:34 | PC.NURSE ---
1145 Pt returned from PACU per bed, IV LR initiated @125/hr, R hip dressing CDI, cms to r lower extremity intact, able to move food but not lift off the bed. Awake and oriented, denied pain at this time.
[2022-05-22 12:41] LABS: Chloride 107 mmol/L (98-107); HEMOLYSIS 16 (0-50)
[2022-05-22 12:44] LABS: BUN Creatinine Ratio 38.1 (6-22); Blood Urea Nitrogen 32 mg/dL (7-17); Calcium 8.4 mg/dL (8.4-10.2); Carbon Dioxide 28 mmol/L (22-32); Estimated Glomerular Filt Rate > 60 mL/min (>60); Glucose 105 mg/dL (80-110); Potassium 4.6 mmol/L (3.4-5.1); Sodium 141 mmol/L (137-145)
[2022-05-22] MEDS: MAGNESIUM SULFATE 2 GM/50 ML PIGGYBACK IV (13:13)
[2022-05-22] MEDS: HYDROMORPHONE 0.5 MG INJ 0.2 MG IV (13:30)
--- NOTE | 2022-05-22 14:08 | PT-IP ANOTE ---
Discussed plan of care with hospitalist physician who indicated pt has elected hospice. PT to discharge orders at this time.
--- NOTE | 2022-05-22 14:57 | CM.DPC ---
DCP Cont: Patient had her hip surgery today. She has been resting, speech has been ordered for patient, as she has had chronic swallowing issues. Patient has indicated to hospitalist and nurse, Mildred, that she wants to go home on hospice, she does not want any other treatments. Dr. Calhoun had updated this DC cyber ops planner regarding patient's wishes. Asked Dr. Calhoun to call patient's elevpxs-ex-wce, Tan, as he was wanting medical updates, and regarding hospice, which he stated he will do, gave him his phone number. Went ahead and called [facility], spoke to Marlyn about new referral. Faxed her over clinical information, and updated her. Have not yet called patient's [id number], since hospitalist will be calling him first. P: DCP to continue to follow. Ordered [facility], and follow up with them to see when they can open, and when equipment can be delivered. Will need to follow up with hospitalist regarding conversation with [id number]. As was stated in previous notes, patient has a private caregiver 5 days a week, in the evening. Georgina Hernadnes, BRITTANY/Criminal Records Technician
[2022-05-22] MEDS: POLYVINYL ALCOHOL DROPS 1 DROPS EYE-BOTH (15:23)
[2022-05-22] MEDS: MORPHINE 10 MG/0.5 ML ORAL SYRINGE SL (15:24)
[2022-05-22] MEDS: LORazepam 2 MG/ML INJ 1 MG IV (17:17)
--- NOTE | 2022-05-22 17:57 | PC.NURSE ---
1430 Present in the room when Hospitalist went in to speak to the patient about possibility of doing a swallow eval and EGD to determine if esophageal stricture could be evaluated and treated here. Pt clearly stated that she didn't want anything done, said she was ready to and could see no purpose in doing more procedures. Agreed with the Dr to go on home hospice and consults were placed. Pt subsequently placed on comfort care. Meds given for pain and anxiety as needed, pt declined to work with physical therapy and said she just wanted to rest. Attempts made to reach family without success.
[2022-05-22] MEDS: HYDROMORPHONE 0.5 MG INJ 1 MG IV (22:20)
[2022-05-23] MEDS: CEFAZOLIN VIAL 1 GM in SODIUM CHLORIDE 0.9% 100 ML IV (02:24)
--- NOTE | 2022-05-23 05:15 | PC.NURSE ---
End of shift note. Care of patient from [id number]. Somnolent and sedated at beginning of shift. At midnight, patient is lethargic, briefly opens eyes, oriented to self, follows commands, grimaces during repositioning, medicated for right leg incision with Dilaudid 0.5mg IV with good pain control. O2 Sats 95-97% on RA. After Dilaudid, O2 Sats dipped to 88%, 2L NC placed on patient for a few hours. Needs assist with Q2hr turns. Right hip dressing CDI, good CMS. Has a bladder urinary catheter with decreased urine out. Patient is comfort care. Plan is to discharge home with hospice.
--- NOTE | 2022-05-23 08:43 | PM.PN.1 ---
Subjective Subjective Date Patient Seen: 05/23/22 Time Patient Seen: 13:00 Interval history: Patient resting quietly. Says she just wants to nap. Asking if SCD's can be removed. Denies any pain. Asking for something for sleep. Exam Vital Signs (past 8 hours): Fraction of Inspired Oxygen 28 SaO2/FiO2 Ratio 339 Oxygen Delivery Method Nasal Cannula Oxygen Flow Rate 0 Narrative Exam Narrative: GEN: thin, frail, appears more comfortable today HEENT: moist mucous membranes, PERRL NECK: trachea midline, no JVD PULM: poor air movement bilaterally, otherwise clear CV: regular rate and rhythm, no murmurs ABD: soft, nontender, nondistended, no organomegaly EXT: warm and well perfused with no edema, R hip with with post-surgical dressings NEURO: awake, alert, oriented, no focal deficits Objective Labs Result Diagrams: 05/22/22 04:20 05/22/22 12:10 Labs: Laboratory Results - last 24 hr 05/22/22 12:10 Sodium 141 D Potassium 4.6 Chloride 107 Carbon Dioxide 28 BUN 32 H Creatinine 0.84 Estimated GFR > 60 BUN/Creatinine Ratio 38.1 H Glucose 105 Calcium 8.4 PFSH Social History household members: family and other Smoking Status: Never smoker alcohol intake: current Assessment & Plan Assessment & Plan narrative: Ms. Nogueira is an 86W with PMH possible atrial fibrillation, on coumadin, s/p PPM, HTN who presents with a fall found to have an acute hip fracture. Goals of care: Patient now on comfort care and will dc on hospice. Removed all non-comfort meds including SCD's and put on morphine SL and ativan PRN. For sleep will use benadryl liquid as patient has trouble swallowing. 1. Acute right hip fracture s/p ORIF on 05/22 -secondary to mechanical fall, patient denies losing consciousness but simply falling -imaging confirms right sided intertrochanter fracture -orthopedic surgery took for surgery on 05/22 with repair -patient not wanting PT/OT 2. Tachypnea and COVID positive -tachypnea may be secondary to pain -chest xray normal -not hypoxemic on admission, no indication for treatment currently 3. Presume atrial fibrillation on coumadin, s/p PPM continue metoprolol -continue coumadin 4. Coagulopathy -initially elevated INR but now 1.5 5. Hypertension -stop home metoprolol, aldactone, lasix and losartan due to dysphagia and comfort care 6. Swallowing difficulty with malnutrition and cachexia -patient notes history of esophageal stricture and chronic regurgitation of solids, she only drinks ensures -previous barium swallow in March 2022 showed dilated esophagus due to GE junction obstruction -patient can drink ensures 7. Pancytopenia -trend daily -no indication for transfusion -suspect secondary to infection 8. Old CVA -noted on CT head incidentally CODE: DNR Proxy: Tan Corea, friend I have utilized all available resources to reconcile the patient's home medications. Dispo: Home with hospice on 05/24. Time Spent With Patient Critical Care time: I spent a total of [] minutes of critical care time on this patient's care today; this time is exclusive of procedural time. Quality VTE Deep Vein Thrombosis/Pulmonary Embolism Present on Admission: No
--- NOTE | 2022-05-23 09:47 | PM.PNPO.1 ---
Subjective Subjective Date Patient Seen: 05/23/22 Time Patient Seen: 09:47 Interval history: Pt sitting up in bed, mildy confused this morning, phone was ringing when I came in and the noise appeared to be disorienting her. I reoriented her to place and time. She denies pain, says she had very confusing dreams last night. Exam Vital Signs (past 8 hours): Fraction of Inspired Oxygen 28 SaO2/FiO2 Ratio 339 Oxygen Delivery Method Nasal Cannula Oxygen Flow Rate 0 Narrative Exam Narrative: Moves feet and toes without difficulty, RLE is warm, calf soft and compressible. Dressing has blood-tinged drainage, does not appear to be any active bleeding. Objective Labs Result Diagrams: 05/22/22 04:20 05/22/22 12:10 Labs: Laboratory Results - last 24 hr 05/22/22 12:10 Sodium 141 D Potassium 4.6 Chloride 107 Carbon Dioxide 28 BUN 32 H Creatinine 0.84 Estimated GFR > 60 BUN/Creatinine Ratio 38.1 H Glucose 105 Calcium 8.4 PFSH Social History household members: family and other Smoking Status: Never smoker alcohol intake: current Assessment & Plan Post-op Assessment and plan (1) Closed fracture of right hip: Assessment and Plan narrative: s/p R dynamic hip screw. Per notes, it appears that pt will be discharging to hospice care; PT has deferred treatment. Pt can be WBAT to RLE and may resume coumadin, which will provide adequate post-surgical VTE prophylaxis. Should follow up in our office with a PA or Dr Henderson between Jun 01 and for staple removal and wound check, but if this is not possible due to logistics of living situation, vivian may be removed at another facility. Postoperative Procedures: Procedures Operation Date: 05/22/22 09:45 Actual Procedure Side Surgeon p ORIF Hip DHS Right Deny Henderson MD Postoperative day: 1 Quality VTE Deep Vein Thrombosis/Pulmonary Embolism Present on Admission: No
--- NOTE | 2022-05-23 10:40 | PC.NURSE ---
Diet changed to clear liquids per patient request as patient is unable to swallow or tolerate thicker foods. She drank clear ensure for breakfast, then requested to rest undisturbed at this time. Will continue to monitor.
--- NOTE | 2022-05-23 11:28 | SLP.IPNOTE ---
Per hospitalist (Dr. Calhoun), discharge pt from speech therapy. Per NSG, pt is tolerating regular diet/thin liquid with no difficulty and is a/o x3, no cognitive impairments identified. Pt is DNR, discharging on hospice, and is on comfort care measures.
--- NOTE | 2022-05-23 14:34 | CM.DPC ---
DCP Cont: DCP spoke to Tan this afternoon to discuss further discharge needs for pt. DCP verbalized the update that [facility] has reviewed pt case and can accept pt under their services. Tan confused about hospice process and requesting more information from hospice. DCP spoke with Deepika @ Hospice and she states that she will contact Tan to answer questions and solidify a plan. Deepika to contact DCP back with further details. DCP to continue to follow. Emy Ruvalcaba RN/THEODOREP
--- NOTE | 2022-05-23 14:39 | PT-IP ANOTE ---
Received new PT orders. Discussed goals of care with pt who was clear with this typewriter assembler that she did not have any mobility-related goals and did not wish to participate with PT. Will discharge orders.
--- NOTE | 2022-05-23 16:37 | DIET.CONS2 ---
Dietary Inpatient Consultation Note Admission Date: 05/20/2022 22:47 86y F referred to nutrition for hx esophageal dysphagia- esophageal stricture and frequent regurgitation only drinking ensures. Pt with cachexia (BMI 18.4, severe for age) per providers, covid+ pna and s/p d1 ORIF after sustaining fracture during GLF. Pt elects to move to hospice care today. Nutrition Dx: Severe Chronic Protein Calorie Malnutrition r/t dysphagia and limited diet aeb pt with BMI 18.4, pt s/p hip fracture from GLF, pt reports esophageal stricture and frequent regurgitation only drinking ONS for nutritional sustenance. Intervention: Kitchen to provide ONS Ensure Enlive tid to support pts nutrition status and preferred nutrition formula. Diet: 05/23/22 Lunch Clear Liquid Diet Diet Modifications: Nutrition Percent Meal Consumed 0% 05/23/22 10:43 Electronically Signed by: Shawnee Warner 05/23/22 16:37 Clinical Dietitian [address] [id number]
[2022-05-23] MEDS: MORPHINE 10 MG/0.5 ML ORAL SYRINGE SL (17:39)
[2022-05-23] MEDS: WARFARIN 2 MG TABLET PO (17:40)
--- NOTE | 2022-05-23 18:52 | PC.NURSE ---
Patient states she is hopeful of being able to get home tomorrow or soon with hospice, she says she is not sure how Tan is taking it. Frequently declining repositioning or transfer to chair today. Tolerating ensure and drinks it independently. Kim maintained. Dressing to right hip remains intact. Call light within reach. Continue to monitor and provide comfort measures.
[2022-05-24 06:00] VITALS: BP 152/71; PULSE 87; RESP 16; TEMP 36.8; O2SAT 93
--- NOTE | 2022-05-24 08:40 | P.DS_ITS ---
History of Present Illness History of Present Illness Chief complaint: Fall hip pain Narrative: Ms. Nogueira is an 86W with PMH HTN, HL, s/p ppm, presumed afib who presents after a fall. She was attempting to stand to have a lidocaine patch placed and feel on her right hip and hit her head. She did not lose consciousness. She had significant hip pain and was unable to ambulate. She denied any shortness of br eath, or chest pain. In the ED workup was done, vitals notable for elevated blood pressure. Labs no table for WBC 3.7, hgb 11.9, plts 108. Creatinine 1.01. INR 5.2. COVID positive. Hip xray shows right intertrochanter fracture. CT head showed old CVA. She was admitted for further treatment. Discharge Providers Provider Date of admission: 05/20/22 22:47 Discharge Date: 05/24/22 Primary care physician: Cora Kerns MD Consults: 05/21/22 08:35 Consult to Respiratory Therapy Evaluate & Treat Comment: Physician Instructions: Evaluate and treat 05/21/22 12:24 Consult to Dietitian, Adult Routine Comment: Reason For Exam: malnutrition 05/21/22 12:25 Consult to Speech Therapy Evaluate & Treat Comment: Physician Instructions: Evaluate and treat 05/22/22 10:48 Consult to Discharge Planning Routine Comment: Consult to Physical Therapy Evaluate & Treat Comment: Physician Instructions: Evaluate and Treat Consult to Respiratory Therapy Evaluate & Treat Comment: Physician Instructions: Evaluate and treat 05/22/22 13:57 Consult to Discharge Planning Routine Comment: Consult to Hospice Referral Urgent Comment: 05/23/22 10:27 Consult to Physical Therapy Evaluate & Treat Comment: Physician Instructions: Evaluate and Treat Discharge provider: Bruno Calhoun DO Summary Hospital Course Discharge Diagnosis: Goals of care: Patient now on comfort care and will dc on hospice. Removed all non-comfort meds including SCD's and put on morphine SL and ativan PRN. For slee p will use benadryl liquid as patient has trouble swallowing. 1. Acute right hip fracture s/p ORIF on 05/22 -secondary to mechanical fall, patient denies losing consciousness but simply falling -imaging confirms right sided intertrochanter fracture -orthopedic surgery took for surgery on 05/22 with repair -patient not wanting PT/OT 2. Tachypnea and COVID positive -tachypnea may be secondary to pain -chest xray normal -not hypoxemic on admission, no indication for treatment currently 3. Presume atrial fibrillation on coumadin, s/p PPM continue metoprolol -continue coumadin 4. Coagulopathy -initially elevated INR but now 1.5 5. Hypertension -stop home metoprolol, aldactone, lasix and losartan due to dysphagia and comfort care 6. Swallowing difficulty with malnutrition and cachexia -patient notes history of esophageal stricture and chronic regurgitation of solids, she only drinks ensures -previous barium swallow in March 2022 showed dilated esophagus due to GE junction obstruction -patient can drink ensures 7. Pancytopenia -trend daily -no indication for transfusion -suspect secondary to infection 8. Old CVA -noted on CT head incidentally Time Spent with Patient Time spent: Greater than 30 minutes Exam Vital Signs (past 8 hours): - 05/24/22 06:00 05/24/22 07:00 Temperature 98.2 F Pulse Rate 87 Respiratory Rate 16 Blood Pressure 152/71 H Pulse Oximetry 93 Oxygen Delivery Method Room Air Fraction of Inspired Oxygen 28 SaO2/FiO2 Ratio 339 Oxygen Delivery Method Room Air Oxygen Flow Rate 0 Narrative Exam Narrative: GEN: thin, frail, appears more comfortable today HEENT: moist mucous membranes, PERRL NECK: trachea midline, no JVD PULM: poor air movement bilaterally, otherwise clear CV: regular rate and rhythm, no murmurs ABD: soft, nontender, nondistended, no organomegaly EXT: warm and well perfused with no edema, R hip with with post-surgical dressings NEURO: awake, alert, oriented, no focal deficits Objective Labs Result Diagrams: 05/22/22 04:20 05/22/22 12:10 [facility] Social History household members: family and other Smoking Status: Never smoker alcohol intake: current Discharge Plan Discharge Plan Patient Disposition: Hospice - Home Discharge orders & Medications Prescriptions: No Action metoprolol succinate 100 mg tablet extended release 24 hr 100 mg PO DAILY omeprazole 20 mg capsule,delayed release(DR/EC) 20 mg PO DAILY furosemide 20 mg tablet 20 mg PO DAILY atorvastatin 10 mg tablet 100 mg PO DAILY spironolactone 25 mg tablet 25 mg PO DAILY warfarin 2 mg tablet 2 mg PO DAILY losartan 25 mg tablet 25 mg PO DAILY Follow up/Referrals: Cora Kerns MD [Primary Care Provider] - Discharge Data Primary Care Provider: Cora Kerns Quality VTE Deep Vein Thrombosis/Pulmonary Embolism Present on Admission: No
[2022-05-24 08:42] VITALS: BP 167/72; PULSE 88; O2SAT 94
--- NOTE | 2022-05-24 10:28 | CM.DPC ---
Addendum entered by Emy Ruvalcaba R.N. 05/24/22 15:06: DCP Cont: DCP spoke with Dora and she verbalized to [facility] that they have to proceed with the [facility]. DCP spoke with [facility] and they verbalized the earliest they could start caregivers would be . They need to do consult with pt and family. DCP verbalized only person would be Dora who could accommodate. They have arranged for a consult tomorrow with pt in the hospital to sign paper work. They will be here @ 1300. DCP spoke with Hospice and they earliest they could see pt would be Monday @ 1000 but could have equipment delivered as early as tomorrow. Dora was contacted and she states that she is going out of town tomorrow and starting on will be gone for 8 days. Dora verbalized that she will not be able to help pt. DCP attempted to contact Tan again for the fourth time. Phone is still off the hook and sending busy tone. DCP contacted [facility]'s office for wellness check as phone has been off the hook since this morning. DCP attempting to contact as we are needing someone to let hospice in the door for equipment. Pt wanting to go home and is refusing to go to a facility as patient states, Want to at home. VAP to continue working on this case. Emy Ruvalcaba RN/VAP Original Note: DCP Cont: DCP spoke to Hospice and they stated that pt cannot go home on hospice due to no caregivers being able to assist her. DCP tried to get in contact with Tan this morning. Phone off the hook. DC contacted Dr. Perez Office for more contact information. Dora Sharma was provided to [facility] as pt DPOA. [facility] spoke with BRYSON John for pt, ([phone]) this morning. Dora states that she is the medical DPOA and has paperwork to verify. Dora states that she is not familiar with setting up caregivers. [facility] provided Dora with list of caregivers. Dora states that pt is in charge of finances and would need to contact the patient to discuss how much pt could pay. Dora states that pt has a caregiver M-F in the evening but only helps with program director/air personality. DCP contacted [facility] to discuss needs of the patient and their availability. Homecare is going to contact Dora to discuss finances and availability. DCP contacted pt and discussed the current plan. Pt agreeable and wants to know how much the caregiving will be. DCP verbalized that she would keep pt updated. DCP states that she owns her house and wants to go back to her house under hospice. DCP to continue to follow case. Emy Ruvalcaba RN/THEODOREP
[2022-05-24] MEDS: MORPHINE 10 MG/0.5 ML ORAL SYRINGE SL ×3 (12:29→23:52)
--- NOTE | 2022-05-24 17:10 | PC.NURSE ---
Day shift note: Pt notes she just wants to at home she is hoping to be able to go home soon with hospice. Pt is declining all care stating that she is comfortable and does not want to move, or have her dressing to to hip changed, dressing is intact with shadow drainage. Kim in place and patent, is refusing all food except clear ensures which she is able to sip on independently. Bed low and locked, call light within reach, will continue to treat and monitor
--- NOTE | 2022-05-24 17:53 | P.PN_ITS ---
Subjective Subjective Date Patient Seen: 05/24/22 Time Patient Seen: 17:53 Interval history: Patient resting quietly. No complaints. Exam Vital Signs (past 8 hours): Fraction of Inspired Oxygen 28 SaO2/FiO2 Ratio 339 Oxygen Delivery Method Room Air Oxygen Flow Rate 0 Narrative Exam Narrative: GEN: thin, frail, appears more comfortable today HEENT: moist mucous membranes, PERRL NECK: trachea midline, no JVD PULM: poor air movement bilaterally, otherwise clear CV: regular rate and rhythm, no murmurs ABD: soft, nontender, nondistended, no organomegaly EXT: warm and well perfused with no edema, R hip with with post-surgical dressings NEURO: awake, alert, oriented, no focal deficits Objective Labs Result Diagrams: 05/22/22 04:20 05/22/22 12:10 [facility] Social History household members: family and other Smoking Status: Never smoker alcohol intake: current Assessment & Plan Assessment & Plan narrative: Ms. Nogueira is an 86W with PMH possible atrial fibrillation, on coumadin, s/p PPM, HTN who presents with a fall found to have an acute hip fracture. Goals of care: Patient now on comfort care and will dc on hospice when placement vs home caregivers can be setup. Continue morphine SL and ativan PRN. For sleep will use benadryl liquid as patient has trouble swallowing. 1. Acute right hip fracture s/p ORIF on 05/22 -secondary to mechanical fall, patient denies losing consciousness but simply falling -imaging confirms right sided intertrochanter fracture -orthopedic surgery took for surgery on 05/22 with repair -patient not wanting PT/OT -daily baby aspirin for clot prevention 2. Tachypnea and COVID positive -tachypnea may be secondary to pain -chest xray normal -not hypoxemic on admission, no indication for treatment currently 3. Presume atrial fibrillation on coumadin, s/p PPM continue metoprolol -change to baby aspirin daily 4. Coagulopathy -initially elevated INR but now 1.5 5. Hypertension -stop home metoprolol, aldactone, lasix and losartan due to dysphagia and comfort care 6. Swallowing difficulty with malnutrition and cachexia -patient notes history of esophageal stricture and chronic regurgitation of solids, she only drinks ensures -previous barium swallow in March 2022 showed dilated esophagus due to GE junction obstruction -patient can drink ensures 7. Pancytopenia -trend daily -no indication for transfusion -suspect secondary to infection 8. Old CVA -noted on CT head incidentally CODE: DNR Proxy: Tan Corea, friend I have utilized all available resources to reconcile the patient's home medications. Dispo: Patient has no one to care for her at home. Spoke with friend Dora who cannot provide care as she is 83yo herself. Tan Corea her ex-brother in law who lives in her basement cannot help. Therefore PURSE [employer]ER working to find home caregiving vs placement with hospice. Time Spent With Patient Critical Care time: I spent a total of [] minutes of critical care time on this patient's care today; this time is exclusive of procedural time. Quality VTE Deep Vein Thrombosis/Pulmonary Embolism Present on Admission: No
[2022-05-25] MEDS: MORPHINE 10 MG/0.5 ML ORAL SYRINGE SL ×7 (06:45→22:31)
--- NOTE | 2022-05-25 08:56 | PM.PN.1 ---
Subjective Subjective Date Patient Seen: 05/25/22 Time Patient Seen: 14:00 Interval history: Patient very somnolent and not arousable. Will likely pass away soon. Exam Vital Signs (past 8 hours): - 05/25/22 07:00 Oxygen Delivery Method Room Air Fraction of Inspired Oxygen 28 SaO2/FiO2 Ratio 339 Oxygen Delivery Method Room Air Oxygen Flow Rate 0 Narrative Exam Narrative: GEN: thin, frail, sleeping with mouth agap and eyes closed HEENT: moist mucous membranes, PERRL NECK: trachea midline, no JVD PULM: poor air movement bilaterally, otherwise clear CV: regular rate and rhythm, no murmurs ABD: soft, nontender, nondistended, no organomegaly EXT: warm and well perfused with no edema, R hip with with post-surgical dressings NEURO: awake, alert, oriented, no focal deficits Objective Labs Result Diagrams: 05/22/22 04:20 05/22/22 12:10 [facility] Social History household members: family and other Smoking Status: Never smoker alcohol intake: current Assessment & Plan Assessment & Plan narrative: Ms. Nogueira is an 86W with PMH possible atrial fibrillation, on coumadin, s/p PPM, HTN who presents with a fall found to have an acute hip fracture. Goals of care: Patient now on comfort care and will dc on hospice when placement vs home caregivers can be setup. Continue morphine SL and ativan PRN. May not make it out of the hospital. 1. Acute right hip fracture s/p ORIF on 05/22 -secondary to mechanical fall, patient denies losing consciousness but simply falling -imaging confirms right sided intertrochanter fracture -orthopedic surgery took for surgery on 05/22 with repair -patient not wanting PT/OT -daily baby aspirin for clot prevention 2. Tachypnea and COVID positive -tachypnea may be secondary to pain -chest xray normal -not hypoxemic on admission, no indication for treatment currently 3. Presume atrial fibrillation on coumadin, s/p PPM continue metoprolol -change to baby aspirin daily 4. Coagulopathy -initially elevated INR but now 1.5 5. Hypertension -stop home metoprolol, aldactone, lasix and losartan due to dysphagia and comfort care 6. Swallowing difficulty with malnutrition and cachexia -patient notes history of esophageal stricture and chronic regurgitation of solids, she only drinks ensures -previous barium swallow in March 2022 showed dilated esophagus due to GE junction obstruction -patient can drink ensures 7. Pancytopenia -trend daily -no indication for transfusion -suspect secondary to infection 8. Old CVA -noted on CT head incidentally CODE: DNR Proxy: Dora, friend and DPOA I have utilized all available resources to reconcile the patient's home medications. Dispo: Caregivers can open at her home on 05/26 and supplies can also be delivered then. However patient may pass away before making it home. Time Spent With Patient Critical Care time: I spent a total of [] minutes of critical care time on this patient's care today; this time is exclusive of procedural time. Quality VTE Deep Vein Thrombosis/Pulmonary Embolism Present on Admission: No
[2022-05-25] MEDS: SCOPOLAMINE 1 PATCH TOP (09:03)
--- NOTE | 2022-05-25 11:14 | CM.DPC ---
Addendum entered by Georgina Hernandes R.N. 05/25/22 15:19: Carisa from [facility], called back. She has arranged for a caregiver to be in the home by 11:00. Left Dottie at [facility] a message, as this is pending equipment. As stated before, caregiver is trained to administer meds, as she will be discharged on comfort meds. Carisa has contacted VIVIANA John. Carisa stated that she will be in the patient's home tomorrow with Dora to sign paperwork. She also stated that Dora was under the assumption that patient would discharge Monday, but let Carisa know that patient's wishes are to be home as soon as she can. She indicated that Dora was not aware that patient had declined since yesterday, but she was updated. Will continue to plan on discharge tomorrow. Addendum entered by Georgina Hernandes R.N. 05/25/22 14:12: Megha from [facility], came in with paper work. Was able to assist her, as well as ICU nurse, Dori, with some information. She did go in to see patient to attempt having her sign paperwork, but patient weak, unable to barely sign, but scribble on paperwork. Megha will get in touch with Dora MICHELLE, to have her sign, and for additional financial information. Patient at this time is not taking in food/fluids, and weak, Nurse indicate that she is getting Morphine on a routine basis. Megha at [facility] is working on getting caregivers into the home tomorrow, for patient's wish is to at home. Called Dottie at [facility], equipment can be delivered tomorrow, but may be between [phone]. May be worth care management contacting [facility] to get a more specific time of delivery. Megha indicated that they are trained to give meds, and can be there in the home before hospice opens on , and will attempt to get staff for tomorrow. She will also contact Dora. She also indicated farheen she may be able to work on payment, for it is unknown if patient could pass soon, and may not require a 2 week down payment. At this time, plan will be to attempt getting her home tomorrow pending equipment delivery, and may be able to call [facility] tomorrow for a more specific time. Original Note: DCP Cont: Was able to get in touch with Nguyen, patient's caregiver. Her number is: [phone]. She confirmed that she does give patient some assistance, but she was more independent at the time. She does come during the evening hours for a couple of hours in the evening. She can't stay with patient for any extended hours because she is a caregiver for another client. Spoke to Dottie at [facility] regarding equipment, and can deliver tomorrow when VIVIANA John is in the home, with plan to open patient on Monday. Had not heard back regarding patient's [id number], for welfare check had been made for him yesterday. Megha from [facility], is expected to be here at the hospital at approximately 1300, to get patient established with caregivers. Updated nurse, Dori. P: THERESA to continue to work on getting patient home on hospice. Will meet with Megha today. Georgina Hernandes RN/Commercial Sales Manager
[2022-05-25 18:39] VITALS: BP 169/72; PULSE 69; RESP 15; O2SAT 94
[2022-05-25] MEDS: LORazepam 2 MG/ML ORAL SOL 1 MG PO ×2 (19:45→22:31)
--- NOTE | 2022-05-26 00:23 | PM.DDS.1 ---
Discharge Summary History of Illness Narrative: Ms. Nogueira is an 86W with PMH possible atrial fibrillation, on coumadin, s/p PPM, HTN who presents with a fall found to have an acute hip fracture. Patient had ORIF surgery on 05/22/2022. 05/25/2022: Change in plan of hospital care: Goals of care: Patient now on comfort care and will dc on hospice when placement vs home caregivers can be setup. Continue morphine SL and ativan PRN. May not make it out of the hospital. The peacefully time of 12:15 a.m. on 05/26/2022 from cardiac and respiratory arrest. The POA was notified. 1. Cardiac arrest, respiratory arrest 2 Acute right hip fracture s/p ORIF on 05/22 3. Tachypnea and COVID positive 4. Presume atrial fibrillation on coumadin, s/p PPM 5. Coagulopathy 6. Hypertension -stop home metoprolol, aldactone, lasix and losartan due to dysphagia and comfort care 7. Swallowing difficulty with malnutrition and cachexia -patient notes history of esophageal stricture and chronic regurgitation of solids, she only drinks ensures -previous barium swallow in March 2022 showed dilated esophagus due to GE junction obstruction 8 Pancytopenia -trend daily -no indication for transfusion -suspect secondary to infection 9. . Old CVA -noted on CT head incidentally CODE: DNR Hospital Course Date of Admission: 05/20/22 22:47 Primary care provider: Cora Kerns MD Consults: 05/21/22 08:35 Consult to Respiratory Therapy Evaluate & Treat Comment: Physician Instructions: Evaluate and treat 05/21/22 12:24 Consult to Dietitian, Adult Routine Comment: Reason For Exam: malnutrition 05/21/22 12:25 Consult to Speech Therapy Evaluate & Treat Comment: Physician Instructions: Evaluate and treat 05/22/22 10:48 Consult to Discharge Planning Routine Comment: Consult to Physical Therapy Evaluate & Treat Comment: Physician Instructions: Evaluate and Treat Consult to Respiratory Therapy Evaluate & Treat Comment: Physician Instructions: Evaluate and treat 05/22/22 13:57 Consult to Discharge Planning Routine Comment: Consult to Hospice Referral Urgent Comment: 05/23/22 10:27 Consult to Physical Therapy Evaluate & Treat Comment: Physician Instructions: Evaluate and Treat Discharge provider: Tg Noel Discharge Diagnosis: due to cardiac and respiratory arrest. 3. Tachypnea and COVID positive 4. Presume atrial fibrillation on coumadin, s/p PPM 5. Coagulopathy 6. Hypertension -home meds wers stopped metoprolol, aldactone, lasix and losartan due to dysphagia and comfort care 7. Swallowing difficulty with malnutrition and cachexia -patient notes history of esophageal stricture and chronic regurgitation of solids, she only drinks ensures -previous barium swallow in March 2022 showed dilated esophagus due to GE junction obstruction 8 Pancytopenia -trend daily -no indication for transfusion -suspect secondary to infection 9. Old CVA Hospital Course: Ms. Nogueira is an 86W with PMH possible atrial fibrillation, on coumadin, s/p PPM, HTN who presents with a fall found to have an acute hip fracture. The patient had ORIF on 05/22, the patient's swallowing difficulties resulting in severe malnutrition and cachexia continued to worsen impeding successful recovery from surgery during hospitalization. The patient and her POA determined on 05/25/2022 to change to comfort care and go home on hospice on 05/26/2022. Goals of care: Patient now on comfort care and will dc on hospice when placement vs home caregivers can be setup. Continue morphine SL and ativan PRN. The patient at approximately 12:15 a.m. on 05/26/2022. Objective Labs Result Diagrams: 05/22/22 04:20 05/22/22 12:10
--- NOTE | 2022-05-26 00:30 | PC.NURSE ---
Pick Up Driver attempted to call patient's DPOA, Dora, x3 about patient's status. Unable to get a hold of her, but left a voicemail. Pick Up Driver was able to get in contact with patient's friend Tan, he however did not know anything regarding home details and stated Dora takes care of that all.
--- NOTE | 2022-05-26 08:05 | CM.DPC ---
DCP Cont: DCP notified of pt passing @ 00:15 today. Pt has been in room since her passing. RN's unable to get in contact with Dora MICHELLE. DCP attempted to contact Dora, however there has been no success in contacting. DCP contacted [facility] to discuss situation and they are in route to assist. [facility] verbalized that they would be able to work with the POA when they do call back. Few minutes later, THERESA found out that they have been in contact with Dora and she wants [facility] for cremation, however, they have not called back yet. Hospice has been notified to cancel services. [facility] agency contacted to cancel services. DCP signing off and allowing RN team to assist. Emy Ruvalcaba RN/THERESA
--- NOTE | 2022-05-26 09:02 | PC.NURSE ---
0835 - [facility] arrived to picker tender patient. patient transported out of building with all belongings by [facility] staff. Paperwork signed and placed in chart.
== END 2022-05-26 00:15 | disposition expired | DRG 480 ==
LOC: ED 21:47 → AC 22:47 → ICU 23:11 → AC 05-23 08:26
PROVIDERS: Orthopaedic Surgery; Student in an Organized Health Care Education/Training Program; Admitting Provider Internal Medicine; Emergency Provider Emergency Medicine; Family Provider Internal Medicine; PCP Internal Medicine; Referring Provider Internal Medicine; Visit Provider Internal Medicine
PROC: 0QS604Z Reposition Right Upper Femur with Internal Fixation Device, Open Approach (ICD-10-PCS; principal; 2022-05-22 09:45)
DX: S72.141A Displaced intertrochanteric fracture of right femur, initial encounter for closed fracture (principal); U07.1 COVID-19; E43 Unspecified severe protein-calorie malnutrition; D61.818 Other pancytopenia; Z68.1 Body mass index [BMI] 19.9 or less, adult; R64 Cachexia; D68.9 Coagulation defect, unspecified; R13.10 Dysphagia, unspecified; I10 Essential (primary) hypertension; K22.2 Esophageal obstruction; F41.9 Anxiety disorder, unspecified; S09.90XA Unspecified injury of head, initial encounter; W18.30XA Fall on same level, unspecified, initial encounter; Z66 Do not resuscitate; Z51.5 Encounter for palliative care; Z79.01 Long term (current) use of anticoagulants; Z95.0 Presence of cardiac pacemaker; I48.0 Paroxysmal atrial fibrillation
CPT/HCPCS: 36415; 70450; 71045; 73502; 76000; 80048; 80053; 81001; 83735; 83880; 85025; 85610; 87077; 87086; 87186; 87635; 87797; 94760; 96374; 99284; C9803; J0330; J0690; J1100; J1170; J2060; J2270; J2405; J2704; J3010; J3430; J3475; J7050